=== PATIENT | female | born 1940 | race Caucasian/White ===

== ENCOUNTER → 2017-04-20 | Outpatient (CLI) | payer MEDICARE ==
--- NOTE | 2017-04-21 08:41 | MM ---
Reason for exam: screening (asymptomatic). Last mammogram was performed 7 years and 1 month ago. History: Patient is postmenopausal. Family history of breast cancer in mother at age 49. Benign cyst aspiration of the right breast, 1978. Physical Findings: A clinical breast exam by your physician is recommended on an annual basis and results should be correlated with mammographic findings. MG Screening Mammo w CAD Bilateral CC and MLO view(s) were taken. Prior study comparison: April 01, 2010, mammogram, performed at [facility]. The breast tissue is almost entirely fat. Finding: There are typically benign grouped/clustered calcifications in the lower quadrant of the right breast. There is a chronic nodularity in the left breast. There is no discrete abnormality. ASSESSMENT: Benign, BI-RAD 2 RECOMMENDATION: Routine screening mammogram of both breasts in 1 year.
== END | disposition home or self-care (01) ==
LOC: RADMAMWWP 10:46
PROVIDERS: ATTEND Family Medicine
DX: Z12.31 Encounter for screening mammogram for malignant neoplasm of breast (principal)

== ENCOUNTER → 2018-02-10 | Outpatient (CLI) | payer MEDICARE ==
--- NOTE | 2018-02-11 12:17 | US ---
EXAMINATION TYPE: US kidneys/renal and bladder DATE OF EXAM: 02/10/2018 COMPARISON: US 09/22/2015 CLINICAL HISTORY: R93.4 HX OF HYDRONEPHROSIS; prolapsed bladder per patient EXAM MEASUREMENTS: Right Kidney: 10.2 x 5.5 x 4.9 cm Left Kidney: 10.6 x 4.6 x 4.8 cm Post Void Residual Volume: bladder emptied Right Kidney: mild hydronephrosis, the pelvocaliectasis is similar to prior exam Left Kidney: Prominence of the renal pelvis shows a similar appearance and may be due to extrarenal p leisa. Bladder: wnl, but may not be fully distended Bilateral Jets seen: only faint left jet was seen Normal Post Void Residual: yes Cortical medullary differentiation is maintained. No evident renal stone or mass. IMPRESSION: No significant interval changes compared to prior exam. Additional findings above.
== END ==
LOC: RADUSWWP 15:29
PROVIDERS: ATTEND Urology
DX: N13.30 Unspecified hydronephrosis (principal)
CPT/HCPCS: 76770

== ENCOUNTER → 2018-05-12 | Outpatient (CLI) | payer MEDICARE ==
[2018-05-12 15:54] LABS: HCT 47.7 % (34.0-46.0); HGB 15.9 gm/dL (11.4-16.0); MCHC 33.3 g/dL (31.0-37.0); MCV 93.1 fL (80.0-100.0); Mean Platelet Volume 7.2; Platelet Count 265 k/uL (150-450); RBC 5.13 m/uL (3.80-5.40); RDW 12.7 % (11.5-15.5); WBC 7.1 k/uL (3.8-10.6)
[2018-05-12 16:02] LABS: Calcium 9.6 mg/dL (8.4-10.2); Potassium 4.1 mmol/L (3.5-5.1)
== END | disposition home or self-care (01) ==
LOC: LABWHC1 15:32
PROVIDERS: ATTEND Obstetrics & Gynecology
DX: Z01.812 Encounter for preprocedural laboratory examination (principal)
CPT/HCPCS: 36415; 80048; 85027; 86850; 86900; 86901

== ENCOUNTER → 2019-07-27 | Outpatient (CLI) | payer MEDICARE | LOC: LABPAT 12:56 | PROVIDERS: ATTEND Orthopaedic Surgery | DX: Z01.812 Encounter for preprocedural laboratory examination (principal); M16.12 Unilateral primary osteoarthritis, left hip | CPT/HCPCS: 87070 ==

== ENCOUNTER 2019-08-06 05:49 | Inpatient (IN) | payer MEDICARE ==
--- NOTE | 2019-08-05 21:00 | HP ---
HISTORY AND PHYSICAL REASON FOR ADMISSION: Surgery 08/06/2019 Stephanie Arnold is a 79-year-old patient seen with symptomatic left hip osteoarthritis. We discussed options with her. She elected to proceed with left total hip arthroplasty. Consent was obtained. Medical clearance was provided by Dr. Lawrence Huber. PAST MEDICAL HISTORY: Hypertension. PAST SURGICAL HISTORY: Appendectomy, cholecystectomy, hysterectomy, right total hip arthroplasty. DAILY MEDICATIONS: Felodipine, Prilosec, Zyrtec. ALLERGIES: SULFA. SOCIAL HISTORY: She denies tobacco use. PHYSICAL EXAMINATION: Evaluation of the left hip: There is diffuse tenderness. Limited range of motion with severe pain. Positive hip impingement sign. Straight leg raise is negative. Her distal neurovascular exam is intact. RADIOGRAPHS: Radiographs of the left hip revealed moderate to severe osteoarthritic changes. IMPRESSION: 1. Left hip osteoarthritis. 2. Hypertension. PLAN: Direct anterior left total hip arthroplasty. Surgery scheduled for 08/06/2019. MMODL / IJN: [id number] /
[~2019-08-06 05:49] MED LIST: ACETAMINOPHEN TAB 500 MG TAB PO ONE; MELOXICAM 7.5 MG TAB PO ONE; TRANEXAMIC ACID 1,000 MG in SODIUM CHLORIDE 0.9% 100 ML IVPB ONE
[2019-08-06] MEDS ORDERED: ROPIVACAINE 246.25 MG, EPINEPHrine 0.5 MG, KETOROLAC 30 MG, cloNIDine HCL/PF 80 MCG, WA... MISCELLANE ONE ×5 (06:00)
[2019-08-06] MEDS ORDERED: DEXAMETHASONE SOD PHOSPHATE 10 MG/ML 1 ML VIAL IV ONE (06:13)
[2019-08-06] MEDS ORDERED: LIDOCAINE 1% 20 ML VIAL (10MG/ML) FOR IV START INTRADERMA PRN (06:13)
[2019-08-06] MEDS ORDERED: ONDANSETRON 4 MG/2 ML VIAL IVP PRN (06:13)
[2019-08-06] MEDS: LACTATED RINGERS 1,000 ML IV SCH ×2 (06:34→15:37)
[2019-08-06] MEDS ORDERED: fentaNYL (PF) 50 MCG/ML 2 ML AMP ONE (07:24)
[2019-08-06] MEDS ORDERED: MIDAZOLAM 2 MG/2 ML VIAL ONE (07:24)
[2019-08-06] MEDS ORDERED: TRANEXAMIC ACID 1,000 MG/10 ML VIAL ONE (07:24)
[2019-08-06] MEDS ORDERED: PROPOFOL 10 MG/ML 20 ML VIAL IV ONE (07:24)
[2019-08-06] MEDS ORDERED: SODIUM CHLORIDE 0.9% 100 ML BAG ONE (07:24)
[2019-08-06] MEDS ORDERED: HYDROmorphone 0.5 MG/0.5 ML SYRINGE IVP PRN ×3 (09:11)
[2019-08-06] MEDS ORDERED: NALOXONE 0.4 MG/ML 1 ML VIAL IV PRN (09:11)
[2019-08-06] MEDS ORDERED: HYDROcodone/APAP 5-325MG 1 EACH TAB PO PRN (09:11)
--- NOTE | 2019-08-06 09:11 | P.OP ---
Date of Procedure: 08/06/19 Preoperative Diagnosis: Left hip osteoarthritis Postoperative Diagnosis: Left hip osteoarthritis Procedure(s) Performed: Direct anterior left total hip arthroplasty Implants: 1. Depuy Corail KA standard collar size 12 press-fit femoral stem 2. Depuy pinnacle 54 mm multi hole press-fit acetabular shell 3. Depuy pinnacle neutral polyethylene acetabular liner 36 mm ID 54 mm OD 4. Biolox delta ceramic femoral head +1.5 36 mm Anesthesia: local, spinal Surgeon: Jose Be Technical Sourcing Recruiter #1: Umberto Gomez Estimated Blood Loss (ml): 100 Pathology: none sent (Femoral head) Condition: stable Disposition: PACU Indications for Procedure: 79-year-old patient seen with symptomatic left hip osteoarthritis. After treatment options were discussed, she elected to proceed with total hip arthroplasty. Operative Findings: See description of procedure Description of Procedure: The patient was taken to the operative suite. Patient underwent a spinal anesthetic by the department of anesthesia. Patient was then transferred to the [place] table. Patient was given preoperative IV antibiotics and TXA. Both lower extremities were placed in standard leg spars. The hip was then prepped and draped in the normal sterile orthopedic fashion. A standard anterior incision was made beginning 3 cm lateral and 1 cm distal to the ASIS extending 10 cm. Dissection was then carried down through the subcutaneous soft tissues down to the fascia overlying the tensor fascia lonny. An incision was now made through the fascia. Careful dissection was taken down exposing the tensor fascia lonny muscle. A Cobra retractor was now placed along the medial femoral neck and a second one along the lateral femoral neck. The venous circumflex vessels were now identified, cauterized and clipped. We identified the anterior hip capsule. An incision was made through the hip capsule along the lateral border. I performed a partial anterior capsulectomy. Retractors were now placed around the femoral neck itself. A femoral neck cut was now made with a sagittal saw. It was completed with an osteotome at the lateral neck area. The femoral head was now removed without difficulty. The extremity was now rotated to 45 of external rotation. It was locked in position. Residual labrum was now debrided out. Serial reaming was performed of the acetabulum while Ishan PATIÑO assisted holding an anterior retractor for exposure. Once we reached the appropriate size and a trial was position and fit nicely. The appropriate size was now chosen opened and made available. It was introduced into the acetabulum without difficulty. The C-arm/fluoroscopy was now brought into the operative field. We made sure we had a true AP pelvic view. We now under direct C- arm/fluoroscopy introduced into the acetabular component with appropriate version and inclination. I held the cup in appropriate position well Ishan PATIÑO used a mallet to seat the acetabular component. I noted the component now to be well seated and stable. Acetabular cup introduce her was removed. The C-arm was pulled back. An appropriate liner was introduced and clicked into position. It was felt to be stable. At this point retractors were removed. The extremity was now placed into 120 external rotation with no traction. The leg was now dropped to the ground and adducted. Appropriate retractors were now positioned along the proximal femur. We also placed our femoral look into position. Additional capsular releasing was performed to gain access to the proximal femur. We now used a box osteotome. A canal finder was now utilized. Serial broaching was now performed with the assistance of Ishan PATIÑO tapping the broaches down with a mallet while held the broach in appropriate rotation and position. This was done until we reached the appropriate size with good overall rotational stability. Appropriate calcar planing was performed. A trial head/neck was placed into position. The hip was now reduced. The C- arm/fluoroscopy was brought back into the operative field. An AP pelvis was obtained to ascertain appropriate leg length. It appeared we had appropriate/reasonable leg length. The trial components appeared well positioned. The C-arm/fluoroscopy was pulled back. Retractors were repositioned and the hip was dislocated. The leg was again taken down to the ground and adducted. Appropriate retractors were repositioned as well as the femoral hook. All trial components were removed. The femoral implant was opened along with the femoral head. The femoral implant was introduced on the appropriate handle into our pre-broached area. I held the component position well Ishan PATIÑO used a mallet to seat the femoral component. The femoral component was now noted to be well seated and stable.. The femoral head was introduced with good positioning and fixation noted. Retractors were now removed. The hip was now reduced. There appeared be good positioning of the hip confirmed on intraoperative fluoroscopy. Spot films were obtained to document this. A second gram of TXA was given. The deep and superficial soft tissues were infiltrated with local analgesic. Bipolar cautery had been utilized intermittently through the procedure for hemostasis. The wound was irrigated copiously with pulse lavage mechanical irrigation. The fascia was repaired with Vicryl suture. The subcutaneous soft tissues were repaired in layers with Vicryl suture. The skin was approximated with pernio/Dermabond. Sterile dressings were applied. Patient was then awakened, transferred to a bed and taken to recovery in stable condition. Ishan PATIÑO assisted with the complex procedure.
[2019-08-06] MEDS: HYDROmorphone 0.5 MG/0.5 ML SYRINGE IVP PRN ×2 (09:12→09:25)
[2019-08-06] MEDS ORDERED: LACTATED RINGERS 1,000 ML IV ONE (09:22)
[2019-08-06] MEDS ORDERED: ONDANSETRON 4 MG/2 ML VIAL IVP ONE (09:22)
--- NOTE | 2019-08-06 09:48 | XR ---
EXAMINATION TYPE: XR Hip Limited LT, FL guidance operating room DATE OF EXAM: 08/06/2019 CLINICAL HISTORY: Fluoroscopic documentation during left hip arthroplasty. TECHNIQUE: Fluoroscopy. COMPARISON: None. FINDINGS: Fluoroscopic guidance was provided during procedure performed by Dr. Be. A total of 15 seconds of fluoroscopic time was utilized during the procedure and 1 spot images was acquired dem onstrating left hip arthroplasty. IMPRESSION: As Above.
[2019-08-06] MEDS ORDERED: SODIUM CHLORIDE 0.9% 500 ML 500 ML IV ONE (10:24)
[2019-08-06] MEDS: LORATADINE 10 MG TAB PO SCH (10:53)
[2019-08-06] MEDS: amLODIPine 10 MG TAB PO SCH (10:53)
[2019-08-06] MEDS: SODIUM CHLORIDE 0.9% 1,000 ML IV SCH (10:54)
--- NOTE | 2019-08-06 12:16 | P.CONS ---
History of Present Illness - Reason for Consult Consult date: 08/06/19 Medical management - History of Present Illness This is a 79-year-old female patient of Dr. Galdino Huber with past medical history of hypertension, gastroesophageal reflux disease, seasonal ALLERGIES, migraine headaches, chronic back pain secondary to degenerative disc disease. Patient has been brought in the hospital on the care of Dr. Be status post anterior approach left hip arthroplasty. Patient is seen in the immediate postop period. She is feeling somewhat nauseated. Blood pressure is on the low side and bolus will be ordered. Family relates that it takes her a while to come out of anesthesia completely. Otherwise, patient is afebrile, heart rate in the 60s, pulse ox 97% on 2 L nasal cannula. Review of Systems Constitutional: Denies anorexia, Denies chills, Denies chronic headaches, Denies fatigue, Denies fever, Denies lethargy, Denies malaise, Denies poor appetite Eyes: denies blurred vision, denies pain Ears, nose, mouth and throat: Denies dysphagia, Denies headache, Denies nasal congestion, Denies nasal discharge, Denies sore throat, Denies vertigo Cardiovascular: Denies chest pain, Denies dyspnea on exertion, Denies edema, Denies leg edema, Denies lightheadedness, Denies shortness of breath, Denies syncope Respiratory: Denies cough, Denies cough with sputum, Denies dyspnea, Denies excessive sputum, Denies hemoptysis, Denies home oxygen, Denies respiratory infections, Denies sleep apnea Gastrointestinal: Reports nausea, Denies abdominal pain, Denies diarrhea, Denies vomiting Genitourinary: Denies dysuria, Denies hematuria, Denies urgency, Denies urinary frequency Musculoskeletal: Denies frequent falls, Denies gait dysfunction, Denies muscle weakness, Denies myalgias Integumentary: Reports wounds, Denies pruritus, Denies rash Neurological: Denies change in mentation, Denies change in speech, Denies numbness, Denies weakness Psychiatric: Denies anxiety, Denies depression Endocrine: Denies fatigue, Denies weight change Past Medical History Past Medical History: GERD/Reflux, Hypertension, Pneumonia Additional Past Medical History / Comment(s): hx migraines, arthritis, 3 bulging disks.. SEASONAL ALLERGIES History of Any Multi-Drug Resistant Organisms: None Reported Past Surgical History: Appendectomy, Breast Surgery, Cholecystectomy, Hernia Repair, Hysterectomy, Joint Replacement, Orthopedic Surgery Additional Past Surgical History / Comment(s): CATARACT REMOVAL OF RIGHT EYE.Ovarian cyst removed. Rt hip replacement. Carpal tunnel-rt. Cyst removed rt breast, left hip anterior approach arthroplasty Past Anesthesia/Blood Transfusion Reactions: Motion Sickness Past Psychological History: No Psychological Hx Reported Smoking Status: Never smoker Past Alcohol Use History: None Reported Additional Past Alcohol Use History / Comment(s): Patient is a lifelong nonsmoker, no marijuana or illicit drug use, no alcohol use. Past Drug Use History: None Reported - Past Family History Father Family Medical History: Cancer Additional Family Medical History / Comment(s): Father at age 80 from prostate cancer. Mother Family Medical History: Cancer Additional Family Medical History / Comment(s): Mother at age 50 from breast cancer. Sister(s) History Unknown: Yes Additional Family Medical History / Comment(s): Patient has one sister the patient has no contact with her. No brothers. Patient has one son with osteoarthritis and hip replacement, 1 daughter with no major medical problems. Medications and Allergies Home Medications Medication Instructions Recorded Confirmed Type Cetirizine HCl [Zyrtec] 10 mg PO QAM 07/08/15 08/02/19 History Cholecalciferol [Vitamin D3] 1,000 unit PO DAILY 07/08/15 08/02/19 History Felodipine [Felodipine ER] 10 mg PO QAM 07/08/15 08/06/19 History Omeprazole [PriLOSEC] 20 mg PO AC-BRKFST 07/08/15 08/06/19 History Acetaminophen [Tylenol] 500 mg PO Q6H PRN 08/02/19 08/06/19 History Allergies Allergy/AdvReac Type Severity Reaction Status Date / Time Sulfa (Sulfonamide Allergy Unknown Verified 08/06/19 06:20 Antibiotics) adhesive tape AdvReac Rash/Hives Verified 08/06/19 06:20 Physical Exam Vitals: Vital Signs Temp Pulse Resp BP Pulse Ox 08/06/19 09:45 57 L 15 116/56 97 08/06/19 09:30 61 16 106/54 97 08/06/19 09:15 68 15 114/55 94 L 08/06/19 09:10 98.6 F 87 16 116/56 94 L 08/06/19 06:18 98 F 73 16 129/71 97 Intake and Output 08/05/19 08/06/19 08/06/19 22:59 06:59 14:59 Intake Total 400 650 Output Total 100 Balance 400 550 Intake: IV 400 650 Output: Estimated Blood Loss 100 Gen: This is a 79-year-old female. Patient is resting in bed appears to be somewhat comfortable with minimal nausea. HEENT: Head is atraumatic, normocephalic. Pupils equal, round. Sclerae is anicteric. Oral mucous membranes of his slightly dry. NECK: Supple. No JVD. No lymphadenopathy. No thyromegaly. LUNGS: Clear to auscultation. No wheezes or rhonchi. No intercostal retractions. HEART: Regular rate and rhythm. No murmur. ABDOMEN: Soft. Bowel sounds are present. No masses. No tenderness. EXTREMITIES: No pedal edema. No calf tenderness. Small dressing in place to the left hip with no breakthrough bleeding or drainage. NEUROLOGICAL: Patient is awake, alert and oriented x3. Cranial nerves 2 through 12 are grossly intact. Assessment and Plan Plan: 1. Osteoarthritis status post left hip anterior approach arthroplasty. Continue current pain management, continue incentive spirometry to reduce incidence of atelectasis and hospital-acquired pneumonia, PT and OT per orthopedics. 2. Hypertension. Continue felodipine 10 mg every a.m. to start tomorrow with parameters in place to hold for hypotension. 3. Gastroesophageal reflux disease and GI prophylaxis. Continue omeprazole or equivalent. 4. Seasonal ALLERGIES. Continue Zyrtec as needed. 5. History of migraine headaches, stable. 6. Degenerative disc disease, stable. 7. DVT prophylaxis. Lovenox. Discharge plan: To be determined Impression and plan of care have been directed as dictated by the signing physician. Kathi Monahan nurse practitioner acting as scribe for signing physician.
[2019-08-06] MEDS: SENNOSIDES-DOCUSATE SODIUM 1 EACH TAB PO SCH (21:02)
[2019-08-06] MEDS: HYDROcodone/APAP 5-325MG 1 EACH TAB PO PRN (21:02)
[2019-08-06] MEDS: ENOXAPARIN 40 MG/0.4 ML SYRINGE SQ SCH (21:03)
[2019-08-06] MEDS: ONDANSETRON 4 MG/2 ML VIAL IVP PRN (21:03)
[2019-08-07] MEDS: HYDROcodone/APAP 5-325MG 1 EACH TAB PO PRN (03:17)
[2019-08-07] MEDS: SODIUM CHLORIDE 0.9% 1,000 ML IV SCH (05:10)
[2019-08-07 06:59] LABS: Basophils % (A) 0 %; Eosinophils % (A) 0 %; HCT 35.3 % (34.0-46.0); HGB 11.6 gm/dL (11.4-16.0); Lymphocytes % (A) 11 %; MCH 31.8 pg (25.0-35.0); MCHC 32.9 g/dL (31.0-37.0); MCV 96.6 fL (80.0-100.0); Mean Platelet Volume 6.4; Monocytes # (A) 0.6 k/uL (0-1.0); Monocytes % (A) 6 %; Neutrophils # (A) 7.9 k/uL (1.3-7.7); Neutrophils % (A) 81 %; Platelet Count 164 k/uL (150-450); RBC 3.65 m/uL (3.80-5.40); RDW 12.8 % (11.5-15.5); WBC 9.7 k/uL (3.8-10.6)
[2019-08-07] MEDS: amLODIPine 10 MG TAB PO SCH (07:39)
[2019-08-07] MEDS: FAMOTIDINE 20 MG TAB PO SCH (07:43)
[2019-08-07] MEDS: LORATADINE 10 MG TAB PO SCH (07:43)
[2019-08-07] MEDS: MELOXICAM 7.5 MG TAB PO SCH (07:43)
[2019-08-07] MEDS: ONDANSETRON 4 MG/2 ML VIAL IVP PRN (09:39)
--- NOTE | 2019-08-07 11:21 | P.PN ---
Subjective Progress Note Date: 08/07/19 Principal diagnosis: Status post left total hip arthroplasty Patient evaluated today at bedside, she is family present. She notes dizziness and nausea when ambulating. She also notes discomfort in the left hip region. She denies any chest pain or shortness of breath. Objective - Vital Signs Vital signs: Vital Signs Temp 98.1 F 08/07/19 07:00 Pulse 79 08/07/19 07:00 Resp 12 08/07/19 07:00 BP 117/72 08/07/19 07:00 Pulse Ox 94 L 08/07/19 07:00 Intake & Output 08/06/19 08/07/19 08/07/19 18:59 06:59 18:59 Intake Total 650 20 Output Total 100 100 Balance 550 -80 Intake: IV 650 Oral 20 Output: Urine 100 Estimated Blood Loss 100 Other: Voiding Method Bedside Commode # Voids 1 1 1 - Exam Left lower extremity: Incision is clean, dry, and intact. The jean paul is in good condition. There is minimal soft tissue swelling and ecchymosis surrounding the medial and lateral aspects of the incision. Calf is soft, no tenderness with palpation. Plantar flexion, dorsiflexion, EHL, FHL are intact. Sensory exam to light touch throughout the extremity is intact, dorsal pedis pulses 2+. - Labs CBC & Chem 7: 08/07/19 06:21 Labs: Abnormal Lab Results - Last 24 Hours (Table) 08/07/19 Range/Units 06:21 RBC 3.65 L (3.80-5.40) m/uL Neutrophils # 7.9 H (1.3-7.7) k/uL Assessment and Plan Plan: Assessment: Postoperative day #1 status post left total hip arthroplasty Plan: Pain control, advised patient on narcotics may be causing nausea. Advised low- dose medication and to make sure she eats before taking medication GI and DVT prophylaxis, continue current medication Dressing change was discussed Encourage spirometer Continue PT Medical recommendations Hopeful dc to home tomorrow Time with Patient: Less than 30
[2019-08-07] MEDS ORDERED: ONDANSETRON 4 MG/2 ML VIAL IVP PRN (11:38)
[2019-08-07] MEDS ORDERED: METOCLOPRAMIDE 5 MG/ML 2 ML VIAL IVP PRN (11:45)
--- NOTE | 2019-08-07 12:47 | P.PN ---
Subjective Progress Note Date: 08/07/19 This is a 79-year-old female patient of Dr. Galdino Huber with past medical history of hypertension, gastroesophageal reflux disease, seasonal ALLERGIES, migraine headaches, chronic back pain secondary to degenerative disc disease. Patient has been brought in the hospital on the care of Dr. Be status post anterior approach left hip arthroplasty. Patient is seen in the immediate postop period. She is feeling somewhat nauseated. Blood pressure is on the low side and bolus will be ordered. Family relates that it takes her a while to come out of anesthesia completely. Otherwise, patient is afebrile, heart rate in the 60s, pulse ox 97% on 2 L nasal cannula. 08/07: The patient complains of feeling dizzy and continues to have nausea. She did receive Zofran and Reglan has been added. She did eat some breakfast this morning. No bowel movement. She is passing gas. She denies any chest pain or shortness of breath. She does complain of hip pain that is a #5-6 and increased pain with movement. She has been afebrile, heart rate 79, blood pressure 117/72, pulse ox 94% on room air. Repeat lab work reveals white count of 9.7, hemoglobin 11.6, platelet count 164. Patient's discharge plan is to return home with [facility]. Review of Systems Constitutional: Denies anorexia, Denies chills, Denies chronic headaches, Denies fatigue, Denies fever, Denies lethargy, Denies malaise, Denies poor appetite, reports dizziness Eyes: denies blurred vision, denies pain Ears, nose, mouth and throat: Denies dysphagia, Denies headache, Denies nasal congestion, Denies nasal discharge, Denies sore throat, Denies vertigo Cardiovascular: Denies chest pain, Denies dyspnea on exertion, Denies edema, Denies leg edema, Denies lightheadedness, Denies shortness of breath, Denies syncope Respiratory: Denies cough, Denies cough with sputum, Denies dyspnea, Denies excessive sputum, Denies hemoptysis, Denies home oxygen, Denies respiratory i nfections, Denies sleep apnea Gastrointestinal: Reports nausea, Denies abdominal pain, Denies diarrhea, Denies vomiting Genitourinary: Denies dysuria, Denies hematuria, Denies urgency, Denies urinary frequency Musculoskeletal: Denies frequent falls, Denies gait dysfunction, Denies muscle weakness, Denies myalgias Integumentary: Reports wounds, Denies pruritus, Denies rash Neurological: Denies change in mentation, Denies change in speech, Denies numbness, Denies weakness Psychiatric: Denies anxiety, Denies depression Endocrine: Denies fatigue, Denies weight change Objective - Vital Signs Vital signs: Vital Signs Temp 98.1 F 08/07/19 07:00 Pulse 79 08/07/19 07:00 Resp 12 08/07/19 07:00 BP 117/72 08/07/19 07:00 Pulse Ox 94 L 08/07/19 07:00 Intake & Output 08/06/19 08/07/19 08/07/19 18:59 06:59 18:59 Intake Total 650 20 Output Total 100 100 Balance 550 -80 Intake: IV 650 Oral 20 Output: Urine 100 Estimated Blood Loss 100 Other: Voiding Method Bedside Commode # Voids 1 1 - Exam Gen: This is a 79-year-old female. Patient is resting in bed appears to be somewhat comfortable due to nausea. HEENT: Head is atraumatic, normocephalic. Pupils equal, round. Sclerae is anicteric. Oral mucous membranes of his slightly dry. NECK: Supple. No JVD. No lymphadenopathy. No thyromegaly. LUNGS: Clear to auscultation. No wheezes or rhonchi. No intercostal retractions. HEART: Regular rate and rhythm. No murmur. ABDOMEN: Soft. Bowel sounds are present. No masses. No tenderness. EXTREMITIES: No pedal edema. No calf tenderness. Small dressing in place to the left hip with no breakthrough bleeding or drainage. NEUROLOGICAL: Patient is awake, alert and oriented x3. Cranial nerves 2 through 12 are grossly intact. - Labs CBC & Chem 7: 08/07/19 06:21 Labs: Abnormal Lab Results - Last 24 Hours (Table) 08/07/19 Range/Units 06:21 RBC 3.65 L (3.80-5.40) m/uL Neutrophils # 7.9 H (1.3-7.7) k/uL Assessment and Plan Plan: 1. Osteoarthritis status post left hip anterior approach arthroplasty. Continue current pain management, continue incentive spirometry to reduce incidence of atelectasis and hospital-acquired pneumonia, PT and OT per orthopedics. 2. Hypertension. Continue felodipine 10 mg every a.m. to start tomorrow with parameters in place to hold for hypotension. 3. Gastroesophageal reflux disease and GI prophylaxis. Continue omeprazole or equivalent. 4. Seasonal ALLERGIES. Continue Zyrtec as needed. 5. History of migraine headaches, stable. 6. Degenerative disc disease, stable. 7. DVT prophylaxis. Lovenox. 8. Postop nausea. Continue Zofran and Reglan added. Discharge plan: Home with [facility]. Impression and plan of care have been directed as dictated by the signing physician. Kathi Monahan nurse practitioner acting as scribe for signing physician.
[2019-08-07] MEDS: SENNOSIDES-DOCUSATE SODIUM 1 EACH TAB PO SCH (21:30)
[2019-08-07] MEDS: ENOXAPARIN 40 MG/0.4 ML SYRINGE SQ SCH (21:30)
[2019-08-08] MEDS: SODIUM CHLORIDE 0.9% 1,000 ML IV SCH (02:20)
[2019-08-08] MEDS: HYDROcodone/APAP 5-325MG 1 EACH TAB PO PRN ×2 (02:27→11:25)
[2019-08-08] MEDS: LACTATED RINGERS 1,000 ML IV SCH (03:55)
[2019-08-08 09:11] VITALS: RESP 16
[2019-08-08] MEDS: amLODIPine 10 MG TAB PO SCH (11:19)
[2019-08-08] MEDS: LORATADINE 10 MG TAB PO SCH (11:20)
[2019-08-08] MEDS: FAMOTIDINE 20 MG TAB PO SCH (11:20)
[2019-08-08] MEDS: MELOXICAM 7.5 MG TAB PO SCH (11:21)
--- NOTE | 2019-08-08 11:37 | P.PN ---
Subjective Progress Note Date: 08/08/19 Principal diagnosis: Status post left total hip arthroplasty Patient evaluated today at bedside, she is family present. Dizziness and nausea has improved. No chest pain or shortness of breath. Patient would like to be discharged to rehab. Objective - Vital Signs Vital signs: Vital Signs Temp 98.5 F 08/08/19 07:49 Pulse 87 08/08/19 07:49 Resp 16 08/08/19 07:49 BP 127/77 08/08/19 07:49 Pulse Ox 95 08/08/19 07:49 Intake & Output 08/07/19 08/08/19 08/08/19 18:59 06:59 18:59 Intake Total 240 Balance 240 Intake: Oral 240 Other: # Voids 1 1 - Exam Left lower extremity: Incision is clean, dry, and intact. The jean paul is in good condition. There is minimal soft tissue swelling and ecchymosis surrounding the medial and lateral aspects of the incision. Calf is soft, no tenderness with palpation. Plantar flexion, dorsiflexion, EHL, FHL are intact. Sensory exam to light touch throughout the extremity is intact, dorsal pedis pulses 2+. - Labs CBC & Chem 7: 08/07/19 06:21 Assessment and Plan Plan: Assessment: Postoperative day #2 status post left total hip arthroplasty Plan: Pain control, plan for discharge on [place] 5 mg/325 mg GI and DVT prophylaxis, aspirin 81 mg twice a day Dressing change was discussed Encourage spirometer Continue PT Medical recommendations Dc to rehab today Time with Patient: Less than 30
--- NOTE | 2019-08-08 14:48 | P.PN ---
Subjective Progress Note Date: 08/08/19 This is a 79-year-old female patient of Dr. Galdino Huber with past medical history of hypertension, gastroesophageal reflux disease, seasonal ALLERGIES, migraine headaches, chronic back pain secondary to degenerative disc disease. Patient has been brought in the hospital on the care of Dr. Be status post anterior approach left hip arthroplasty. Patient is seen in the immediate postop period. She is feeling somewhat nauseated. Blood pressure is on the low side and bolus will be ordered. Family relates that it takes her a while to come out of anesthesia completely. Otherwise, patient is afebrile, heart rate in the 60s, pulse ox 97% on 2 L nasal cannula. 08/07: The patient complains of feeling dizzy and continues to have nausea. She did receive Zofran and Reglan has been added. She did eat some breakfast this morning. No bowel movement. She is passing gas. She denies any chest pain or shortness of breath. She does complain of hip pain that is a #5-6 and increased pain with movement. She has been afebrile, heart rate 79, blood pressure 117/72, pulse ox 94% on room air. Repeat lab work reveals white count of 9.7, hemoglobin 11.6, platelet count 164. Patient's discharge plan is to return home with [facility]. 08/08: Patient has been afebrile, heart rate 87, blood pressure 127/77, pulse ox 95% on room air. Patient states that nausea is completely gone. She denies having any shortness of breath. She ate half of her breakfast this morning. She states that her is currently a patient at [facility] and social work is following for discharge planning to [facility] for her as well. Review of Systems Constitutional: Denies anorexia, Denies chills, Denies chronic headaches, Denies fatigue, Denies fever, Denies lethargy, Denies malaise, Denies poor appetite, reports dizziness Eyes: denies blurred vision, denies pain Ears, nose, mouth and throat: Denies dysphagia, Denies headache, Denies nasal congestion, Denies nasal discharge, Denies sore throat, Denies vertigo Cardiovascular: Denies chest pain, Denies dyspnea on exertion, Denies edema, Denies leg edema, Denies lightheadedness, Denies shortness of breath, Denies syncope Respiratory: Denies cough, Denies cough with sputum, Denies dyspnea, Denies excessive sputum, Denies hemoptysis, Denies home oxygen, Denies respiratory infections, Denies sleep apnea Gastrointestinal: Denies nausea, Denies abdominal pain, Denies diarrhea, Denies vomiting Genitourinary: Denies dysuria, Denies hematuria, Denies urgency, Denies urinary frequency Musculoskeletal: Denies frequent falls, Denies gait dysfunction, Denies muscle weakness, Denies myalgias Integumentary: Reports wounds, Denies pruritus, Denies rash Neurological: Denies change in mentation, Denies change in speech, Denies numbness, Denies weakness Psychiatric: Denies anxiety, Denies depression Endocrine: Denies fatigue, Denies weight change Objective - Vital Signs Vital signs: Vital Signs Temp 98.5 F 08/08/19 07:49 Pulse 87 08/08/19 07:49 Resp 16 08/08/19 07:49 BP 127/77 08/08/19 07:49 Pulse Ox 95 08/08/19 07:49 Intake & Output 08/07/19 08/08/19 08/08/19 18:59 06:59 18:59 Intake Total 240 Balance 240 Intake: Oral 240 Other: # Voids 1 1 - Exam Gen: This is a 79-year-old female. Patient is resting in chair appears to be comfortable and in no acute distress. HEENT: Head is atraumatic, normocephalic. Pupils equal, round. Sclerae is anicteric. Oral mucous membranes of his slightly dry. NECK: Supple. No JVD. No lymphadenopathy. No thyromegaly. LUNGS: Clear to auscultation. No wheezes or rhonchi. No intercostal retractions. HEART: Regular rate and rhythm. No murmur. ABDOMEN: Soft. Bowel sounds are present. No masses. No tenderness. EXTREMITIES: No pedal edema. No calf tenderness. Small dressing in place to the left hip with no breakthrough bleeding or drainage. NEUROLOGICAL: Patient is awake, alert and oriented x3. Cranial nerves 2 through 12 are grossly intact. - Labs CBC & Chem 7: 08/07/19 06:21 Assessment and Plan Plan: 1. Osteoarthritis status post left hip anterior approach arthroplasty. Continue current pain management, continue incentive spirometry to reduce incidence of atelectasis and hospital-acquired pneumonia, PT and OT per orthopedics. 2. Hypertension. Continue felodipine 10 mg every a.m. hold for hypotension. 3. Gastroesophageal reflux disease and GI prophylaxis. Continue omeprazole or equivalent. 4. Seasonal ALLERGIES. Continue Zyrtec as needed. 5. History of migraine headaches, stable. 6. Degenerative disc disease, stable. 7. DVT prophylaxis. Lovenox. 8. Postop nausea, resolved. Continue Zofran and Reglan added. Discharge plan: [facility] under the care of Dr. Lugo most likely on . Impression and plan of care have been directed as dictated by the signing physician. Kathi Monahan nurse practitioner acting as scribe for signing physician.
--- NOTE | 2019-08-08 15:29 | P.DS ---
Providers Date of admission: 08/06/19 05:49 Expected date of discharge: 08/08/19 Attending physician: Jose Be Primary care physician: Galdino Huebr Hospital Course: Date of admission: 08/06/2019 Date of discharge: 08/08/2019 Admission diagnosis: Status post direct anterior left total hip arthroplasty Discharge diagnosis: Same Attending physician: Dr. Be Surgical procedures: Direct anterior left total hip arthroplasty Brief history: Patient is a 79-year-old female with a history of progressive primary left hip osteoarthritis. At this point patient has failed conservative treatment measures and has opted to proceed with a elective direct anterior left total hip arthroplasty. Hospital course: Details of patient's surgery can be found in operative report. Patient tolerated the procedure well and was subsequently transported to orthopedic floor. Patient's orthopeidc and medical care was provided daily. Patient had daily laboratory tests performed for evaluation of overall blood counts. Patient had daily physical therapy to include strengthening range of motion as well as education with walker ambulation. Patient was treated with Lovenox for their postoperative DVT prophylaxis during their inpatient stay. Patient was noted to have a relatively uneventful postoperative course. Patient reported satisfactory pain control with oral pain medications by postoperative day 0. Patient showed satisfactory progress with physical therapy. Patient moved steadily through the program and had no difficulty meeting the goals by postoperative day 2. Given patient's otherwise satisfactory course and having met physical therapy goals, plan is to discharge patient rehab on postoperative day 2. Discharge condition/disposition: Patient will be discharged home in stable condition. Discharge medications: Instructions are given on resumption of patient's normal daily medications per primary care recommendation, in addition patient will be prescribed Sargent 5 mg/325 mg, Colace 100 mg, aspirin 81 mg. Discharge instructions: 1. Wound care and infection precautions, keep incision dry and covered while showering, no lotions, creams, moisturizers. No soaking, tubs, pools, hottubs. Do not scrub over the incision. 2. Weight-bear as tolerated with walker / cane until follow-up. 3. Ice and elevate when necessary. Do not exceed 20 minutes per hour with ice pack. 4. Utilize compression sleeve until seen at first follow up appointment. 5. Visiting nursing care. 6. Home physical therapy. 7. Pain meds and anticoagulants per prescription. 8. Pain medication has potential to cause constipation. Increase oral fluid and fiber intake. Contact primary care provider if you have not had a bowel movement within 48 hours after discharge 9. No anti-inflammatory medication until discussed at first post operative visit, this including Motrin, Aleve, Mobic, Diclofenac. 10. Follow up in office at 2 weeks postop with Ishan Gomez PA-C 11. Follow up with your primary care doctor 7-10 days after discharge. 12. Contact [facility] with any questions, . Procedures: Direct anterior left total hip arthroplasty Patient Condition at Discharge: Good Plan - Discharge Summary Discharge Rx Participant: No New Discharge Prescriptions: New Famotidine [Pepcid] 20 mg PO DAILY tab Aspirin [Adult Low Dose Aspirin EC] 81 mg PO BID #60 tablet. Docleonardte [Colace] 100 mg PO DAILY #30 capsule Hydrocodone/Acetaminophen [S[place]ent 5-325] 1 each PO Q6HR PRN #28 tab PRN Reason: Pain Continue Omeprazole [PriLOSEC] 20 mg PO AC-BRKFST Cholecalciferol [Vitamin D3 (25 Mcg = 1000 Iu)] 1,000 unit PO DAILY Felodipine [Felodipine ER] 10 mg PO QAM Cetirizine HCl [Zyrtec] 10 mg PO QAM Acetaminophen [Tylenol] 500 mg PO Q6H PRN PRN Reason: Pain Discharge Medication List Cetirizine HCl [Zyrtec] 10 mg PO QAM 07/08/15 [History] Cholecalciferol [Vitamin D3 (25 Mcg = 1000 Iu)] 1,000 unit PO DAILY 07/08/15 [History] Felodipine [Felodipine ER] 10 mg PO QAM 07/08/15 [History] Omeprazole [PriLOSEC] 20 mg PO AC-BRKFST 07/08/15 [History] Acetaminophen [Tylenol] 500 mg PO Q6H PRN 08/02/19 [History] Aspirin [Adult Low Dose Aspirin EC] 81 mg PO BID #60 tablet. 08/08/19 [Rx] Docusate [Colace] 100 mg PO DAILY #30 capsule 08/08/19 [Rx] Famotidine [Pepcid] 20 mg PO DAILY tab 08/08/19 [Rx] Hydrocodone/Acetaminophen [Sargent 5-325] 1 each PO Q6HR PRN #28 tab 08/08/19 [Rx] Follow up Appointment(s)/Referral(s): [facility], [NON-STAFF] - As Needed Umberto Gomez, PAC [PHYSICIAN METALLURGY TEACHER] - 08/22/19 2:00 pm Galdino Huber MD [Primary Care Provider] - 1 Week Activity/Diet/Wound Care/Special Instructions: Orthopedic Discharge Instructions: 1. Wound care and infection precautions, keep incision dry and covered while showering, no lotions, creams, moisturizers. No soaking, pools, hot tubs. Do not scrub over incision. 2. Weight-bear as tolerated with walker / cane until follow-up. 3. Ice and elevate when necessary. Do not exceed 20 minutes per hour with ice pack. 4. Utilize compression sleeve until seen at first follow up appointment. 5. Pain meds and anticoagulants per prescription. 6. Pain medication has potential to cause constipation. Increase oral fluid and fiber intake. Contact primary care provider if you have not had a bowel movement within 48 hours after discharge. 7. No anti-inflammatory medication until discussed at first post operative visit, this including Motrin, Aleve, Mobic, Diclofenac. 8. Follow up in office at 2 weeks postop with Ishan Gomez PA-C 9. Follow up with your primary care doctor 7-10 days after discharge. 10. Contact [facility] with any questions, . Discharge Disposition: TRANSFER TO SNF/ECF
[2019-08-08 16:41] VITALS: BP 120/72; PULSE 85; TEMP 98.7
== END 2019-08-08 16:29 | DRG 470 ==
LOC: 2ORMAIN 05:49 → 4SSUR 08:57
PROVIDERS: ADMIT Orthopaedic Surgery; ATTEND Orthopaedic Surgery
PROC: 0SRB04A Replacement of Left Hip Joint with Ceramic on Polyethylene Synthetic Substitute, Uncemented, Open Approach (ICD-10-PCS; principal; 2019-08-06 07:30)
DX: M16.12 Unilateral primary osteoarthritis, left hip (principal); I10 Essential (primary) hypertension; M51.26 Other intervertebral disc displacement, lumbar region; M15.9 Polyosteoarthritis, unspecified; E66.3 Overweight; K21.9 Gastro-esophageal reflux disease without esophagitis; R42 Dizziness and giddiness; R11.0 Nausea; G43.909 Migraine, unspecified, not intractable, without status migrainosus; J30.2 Other seasonal allergic rhinitis; M51.36 Other intervertebral disc degeneration, lumbar region; Z96.641 Presence of right artificial hip joint; Z90.49 Acquired absence of other specified parts of digestive tract; Z90.710 Acquired absence of both cervix and uterus; Z79.899 Other long term (current) drug therapy; Z88.2 Allergy status to sulfonamides; Z87.01 Personal history of pneumonia (recurrent); Z98.890 Other specified postprocedural states; Z98.41 Cataract extraction status, right eye; Z80.42 Family history of malignant neoplasm of prostate; Z80.3 Family history of malignant neoplasm of breast; Z82.61 Family history of arthritis; Z91.09 Other allergy status, other than to drugs and biological substances; Z82.49 Family history of ischemic heart disease and other diseases of the circulatory system; Z97.3 Presence of spectacles and contact lenses; Z68.32 Body mass index [BMI] 32.0-32.9, adult
CPT/HCPCS: 36415; 73501; 85025; 86850; 86900; 86901; 88300

== ENCOUNTER 2020-05-09 17:19 | Observation (INO) | payer MEDICARE ==
[2020-05-09] MEDS ORDERED: HYDROmorphone 1 MG/ML 1 ML SYRINGE IVP STA (17:40)
[2020-05-09] MEDS ORDERED: DIAZEPAM 5 MG/ML 2 ML INJ IVP STA (17:45)
[2020-05-09] MEDS ORDERED: ONDANSETRON 4 MG/2 ML VIAL IVP STA (17:51)
[2020-05-09] MEDS ORDERED: NALOXONE 0.4 MG/ML 1 ML VIAL IVP STA (18:14)
[2020-05-09] MEDS ORDERED: NALOXONE 0.4 MG/ML 10 ML VIAL IVP PRN (18:16)
[2020-05-09] MEDS ORDERED: NALOXONE 0.4 MG/ML 1 ML VIAL IVP PRN (18:18)
--- NOTE | 2020-05-09 18:19 | ED ---
Fall HPI <AimeWilliam - Last Filed: 05/09/20 20:40> - General Source: patient, EMS Mode of arrival: EMS <Roberto Panchal - Last Filed: 05/09/20 21:17> - General Chief Complaint: Fall Stated Complaint: Fall Time Seen by Provider: 05/09/20 17:34 - History of Present Illness Initial Comments: Patient is 79-year-old female presenting to the emergency department with a chief complaint of left ear pain. Patient reports she had bilateral hip arthroplasty last year by . Patient states today she was out working the garden when she attempted to lean to the left side and her "left hip gave out". Patient reports there is significant amount of pain in the left hip and she is not able to move it in any direction. Patient reports any movement causes the pain to be exacerbated. Denies any numbness or tingling. Patient brought to the ED via EMS. Patient was given fentanyl in the ambulance (Roberto Panchal) - Related Data Home Medications Medication Instructions Recorded Confirmed Cetirizine HCl [Zyrtec] 10 mg PO QAM 07/08/15 08/02/19 Cholecalciferol [Vitamin D3 (25 1,000 unit PO DAILY 07/08/15 08/02/19 Mcg = 1000 Iu)] Felodipine [Felodipine ER] 10 mg PO QAM 07/08/15 08/06/19 Omeprazole [PriLOSEC] 20 mg PO AC-BRKFST 07/08/15 08/06/19 Acetaminophen [Tylenol] 500 mg PO Q6H PRN 08/02/19 08/06/19 Previous Rx's Medication Instructions Recorded Aspirin [Adult Low Dose Aspirin EC] 81 mg PO BID #60 tablet. 08/08/19 Docusate [Colace] 100 mg PO DAILY #30 capsule 08/08/19 Famotidine [Pepcid] 20 mg PO DAILY tab 08/08/19 Hydrocodone/Acetaminophen [[place] 1 each PO Q6HR PRN #28 tab 08/08/19 5-325] Allergies Allergy/AdvReac Type Severity Reaction Status Date / Time Sulfa (Sulfonamide Allergy Unknown Verified 08/06/19 06:20 Antibiotics) adhesive tape AdvReac Rash/Hives Verified 08/06/19 06:20 Review of Systems ROS Other: All systems not noted in ROS Statement are negative. <William Salomon - Last Filed: 05/09/20 20:40> ROS Other: All systems not noted in ROS Statement are negative. <Roberto Panchal - Last Filed: 05/09/20 21:17> ROS Statement: Those systems with pertinent positive or pertinent negative responses have been documented in the HPI. Past Medical History Past Medical History: GERD/Reflux, Hypertension, Pneumonia Additional Past Medical History / Comment(s): hx migraines, arthritis, 3 bulging disks History of Any Multi-Drug Resistant Organisms: None Reported Past Surgical History: Appendectomy, Breast Surgery, Cholecystectomy, Hernia Repair, Hysterectomy, Joint Replacement, Orthopedic Surgery Additional Past Surgical History / Comment(s): CATARACT REMOVAL OF RIGHT EYE.Ovarian cyst removed. Rt hip replacement. Carpal tunnel-rt. Cyst removed rt breast, left hip anterior approach arthroplasty Past Anesthesia/Blood Transfusion Reactions: Motion Sickness Past Psychological History: No Psychological Hx Reported Smoking Status: Never smoker Past Alcohol Use History: None Reported Past Drug Use History: None Reported - Past Family History Sister(s) History Unknown: Yes Additional Family Medical History / Comment(s): Patient has one sister the patient has no contact with her. No brothers. Patient has one son with osteoarthritis and hip replacement, 1 daughter with no major medical problems. Father Family Medical History: Cancer Additional Family Medical History / Comment(s): Father at age 80 from prostate cancer. Mother Family Medical History: Cancer Additional Family Medical History / Comment(s): Mother at age 50 from tamiko ast cancer. <Roberto Panchal - Last Filed: 05/09/20 21:17> General Exam Limitations: physical limitation General appearance: alert, in distress Head exam: Present: atraumatic, normocephalic, normal inspection Eye exam: Present: normal appearance, PERRL, EOMI Pupils: Present: normal accommodation ENT exam: Present: normal exam, normal oropharynx, mucous membranes moist Neck exam: Present: normal inspection, full ROM. Absent: tenderness Respiratory exam: Present: normal lung sounds bilaterally Cardiovascular Exam: Present: regular rate, normal rhythm, normal heart sounds Extremities exam: Present: normal inspection, tenderness (Tenderness over the lateral aspect of the left hip.), normal capillary refill. Absent: full ROM (Limited range of motion due to pain.) Back exam: Present: normal inspection, full ROM. Absent: tenderness Neurological exam: Present: alert, oriented X3 Psychiatric exam: Present: normal affect, normal mood Skin exam: Present: warm, dry, intact, normal color <Roberto Panchal - Last Filed: 05/09/20 21:17> Course Vital Signs 05/09/20 05/09/20 05/09/20 17:30 18:10 18:12 Temperature 97.9 F Pulse Rate 83 92 Respiratory 18 6 L 15 Rate Blood Pressure 129/87 98/75 O2 Sat by Pulse 95 80 L 97 Oximetry 05/09/20 05/09/20 05/09/20 18:19 19:00 19:33 Temperature Pulse Rate 86 98 105 H Respiratory 16 18 22 Rate Blood Pressure 150/80 133/86 153/83 O2 Sat by Pulse 98 94 L 97 Oximetry 05/09/20 05/09/20 05/09/20 20:03 20:11 20:12 Temperature Pulse Rate 105 H 61 94 Respiratory 20 14 14 Rate Blood Pressure 156/76 148/80 150/97 O2 Sat by Pulse 96 95 96 Oximetry 05/09/20 05/09/20 05/09/20 20:17 20:25 20:31 Temperature Pulse Rate 96 92 87 Respiratory 16 16 16 Rate Blood Pressure 135/80 137/76 135/75 O2 Sat by Pulse 96 98 99 Oximetry 05/09/20 05/09/20 05/09/20 20:35 20:37 20:40 Temperature Pulse Rate 89 85 Respiratory 16 16 Rate Blood Pressure 133/80 134/73 O2 Sat by Pulse 99 97 97 Oximetry 05/09/20 05/09/20 20:58 21:03 Temperature Pulse Rate 95 92 Respiratory 20 16 Rate Blood Pressure 145/79 126/77 O2 Sat by Pulse 96 94 L Oximetry Procedures - Procedural Sedation Procedural Sedation Start Time: 20:10 Procedural Sedation Stop Time: 20:41 Indications: fracture/dislocation reduction ASA Class: II Mallampati Airway Score: 2 Preparation: pony worker applied, pulse oximeter, capnometry used, supplemental O2 applied IV Etomidate Dose (mgs): 14 Complications: hypoxia Interventions: assist by BVM, other (Patient did have some hypoventilation and hypoxia. Patient was assisted by [id number] for approximately 2 minutes. Patient did well and started breathing well on her own as the etomidate wore off.) <William Salomon - Last Filed: 05/09/20 20:40> Medical Decision Making - Lab Data Result diagrams: 05/09/20 17:58 05/09/20 17:58 <William Salomon - Last Filed: 05/09/20 20:40> - Lab Data Result diagrams: 05/09/20 17:58 05/09/20 17:58 <Roberto Panchal - Last Filed: 05/09/20 21:17> - Medical Decision Making Patient is 79-year-old male presenting to emergency Department with a chief complaint of left hip pain. Patient fell and now she has pain in the left hip and unable to move it. X-ray reveals lateral hip dislocation. Patient was gi piper fentanyl in the ambulance. Patient was in significant discomfort on initial evaluation and is feeling due to the pain. She was also complaining of spasms of the left hip. Patient was given 1 mg of Dilaudid and 1 mg of Valium. Several minutes after patient became apneic. Patient was immediately placed on a nonrebreather and was given Narcan. Patient returned to baseline but she did continue to have pain afterward. She was given Toradol and Ativan. I was able to perform the reduction of the left hip in conjunction with Dr. Salomon. Repeat x-rays confirmed successful reduction. He performed the sedations. I spoke with HAROON kraft who states the patient can either be admitted or discharged. Patient is slowly coming out of the sedation. I spoke with her daughter who states she would like to have the patient admitted. Patient continues to be drowsy but is slowly improving. Patient will be admitted for observation and will be seen tomorrow by orthopedics. Case discussed with Dr. Salomon. Admitting physician is (Roberto Panchal) - Lab Data Lab Results 05/09/20 05/09/20 05/09/20 Range/Units 17:58 17:58 17:58 WBC 13.3 H (3.8-10.6) k/uL RBC 4.82 (3.80-5.40) m/uL Hgb 15.0 (11.4-16.0) gm/dL Hct 45.0 (34.0-46.0) % MCV 93.4 (80.0-100.0) fL MCH 31.1 (25.0-35.0) pg MCHC 33.2 (31.0-37.0) g/dL RDW 13.2 (11.5-15.5) % Plt Count 236 (150-450) k/uL Neutrophils % 76 % Lymphocytes % 17 % Monocytes % 5 % Eosinophils % 1 % Basophils % 0 % Neutrophils # 10.1 H (1.3-7.7) k/uL Lymphocytes # 2.2 (1.0-4.8) k/uL Monocytes # 0.7 (0-1.0) k/uL Eosinophils # 0.1 (0-0.7) k/uL Basophils # 0.0 (0-0.2) k/uL PT 9.9 (9.0-12.0) sec INR 1.0 (<1.2) APTT 22.2 (22.0-30.0) sec Sodium 136 L (137-145) mmol/L Potassium 4.6 (3.5-5.1) mmol/L Chloride 109 H (98-107) mmol/L Carbon Dioxide 19 L (22-30) mmol/L Anion Gap 8 mmol/L BUN 23 H (7-17) mg/dL Creatinine 0.72 (0.52-1.04) mg/dL Est GFR (CKD-EPI)AfAm >90 (>60 ml/min/1.73 sqM) Est GFR (CKD-EPI)NonAf 82 (>60 ml/min/1.73 sqM) Glucose 104 H (74-99) mg/dL Calcium 9.7 (8.4-10.2) mg/dL Total Bilirubin 0.5 (0.2-1.3) mg/dL AST 28 (14-36) U/L ALT 15 (4-34) U/L Alkaline Phosphatase 112 (38-126) U/L Total Protein 7.1 (6.3-8.2) g/dL Albumin 4.2 (3.5-5.0) g/dL Disposition <William Salomon - Last Filed: 05/09/20 20:40> Is patient prescribed a controlled substance at d/c from ED?: No Time of Disposition: 21:17 <Roberto Panchal - Last Filed: 05/09/20 21:17> Clinical Impression: Fall, Hip dislocation, left Disposition: ADMITTED IP TO THIS [facility] Condition: Good Additional Instructions: Patient will be admitted Referrals: Galdino Huber MD [Primary Care Provider] - 1-2 days
[2020-05-09 18:20] LABS: Basophils % (A) 0 %; Eosinophils # (A) 0.1 k/uL (0-0.7); Eosinophils % (A) 1 %; Lymphocytes # (A) 2.2 k/uL (1.0-4.8); Lymphocytes % (A) 17 %; MCH 31.1 pg (25.0-35.0); MCHC 33.2 g/dL (31.0-37.0); MCV 93.4 fL (80.0-100.0); Mean Platelet Volume 7.8; Monocytes # (A) 0.7 k/uL (0-1.0); Monocytes % (A) 5 %; Neutrophils # (A) 10.1 k/uL (1.3-7.7); Neutrophils % (A) 76 %; Platelet Count 236 k/uL (150-450); RBC 4.82 m/uL (3.80-5.40); RDW 13.2 % (11.5-15.5); WBC 13.3 k/uL (3.8-10.6)
[2020-05-09 18:31] LABS: ALT 15 U/L (4-34); AST 28 U/L (14-36); African American GFR (CKD) >90 (>60 ml/min/1.73 sqM); Albumin 4.2 g/dL (3.5-5.0); Alkaline Phosphatase 112 U/L (38-126); Anion Gap 8 mmol/L; Blood Urea Nitrogen 23 mg/dL (7-17); Calcium 9.7 mg/dL (8.4-10.2); Carbon Dioxide 19 mmol/L (22-30); Chloride 109 mmol/L (98-107); Glucose 104 mg/dL (74-99); Non-African American GFR(CKD) 82 (>60 ml/min/1.73 sqM); Potassium 4.6 mmol/L (3.5-5.1); Sodium 136 mmol/L (137-145); Total Bilirubin 0.5 mg/dL (0.2-1.3); Total Protein 7.1 g/dL (6.3-8.2)
[2020-05-09 18:55] LABS: Partial Thromboplastin Time 22.2 sec (22.0-30.0); Prothrombin Time 9.9 sec (9.0-12.0)
[2020-05-09] MEDS ORDERED: ORPHENADRINE 30 MG/ML 2 ML VIAL IM STA (19:15)
--- NOTE | 2020-05-09 19:19 | XR ---
EXAMINATION TYPE: XR Hip LT and AP Pelvis DATE OF EXAM: 05/09/2020 COMPARISON: 08/22/2019 HISTORY: Left hip pain TECHNIQUE: 3 views FINDINGS: There are bilateral hip prostheses. There is lateral dislocation of the prosthetic left fem oral head. I see no fracture. IMPRESSION: Lateral dislocation of the left hip prosthesis.
[2020-05-09] MEDS ORDERED: KETOROLAC 15 MG/ML 1 ML VIAL IVP STA (19:24)
--- NOTE | 2020-05-09 19:26 | XR ---
EXAMINATION TYPE: XR chest 1V DATE OF EXAM: 05/09/2020 COMPARISON: NONE HISTORY: Chest pain TECHNIQUE: 2 views FINDINGS: There is no heart failure nor confluent pneumonic infiltrate. Costophrenic angles are clear . There are chest leads. Thoracic aorta is atheromatous. IMPRESSION: No active cardiopulmonary disease. Heart is probably enlarged.
[2020-05-09] MEDS ORDERED: ETOMIDATE 2 MG/ML 10 ML VIAL IVP STA (19:45)
[2020-05-09] MEDS ORDERED: LORazepam 2 MG/ML INJ IV STA (19:46)
--- NOTE | 2020-05-09 20:39 | XR ---
EXAMINATION TYPE: XR Hip Limited LT DATE OF EXAM: 05/09/2020 COMPARISON: Today HISTORY: Post reduction TECHNIQUE: Single view FINDINGS: There is anatomic reduction of the dislocated left hip prosthesis. IMPRESSION: Anatomic reduction. No fracture seen.
[2020-05-09 21:05] VITALS: RESP 16
[2020-05-09] MEDS ORDERED: LORazepam 2 MG/ML INJ IV PRN (21:12)
[2020-05-09] MEDS ORDERED: ACETAMINOPHEN TAB 325 MG TAB PO PRN (21:12)
[2020-05-09] MEDS ORDERED: traMADol 50 MG TAB PO PRN (21:12)
[2020-05-09] MEDS ORDERED: NALOXONE 0.4 MG/ML 1 ML VIAL IV PRN (21:12)
[2020-05-09] MEDS: SODIUM CHLORIDE 0.9% 1,000 ML IV SCH (23:10)
[2020-05-10 02:29] VITALS: PULSE 84
[2020-05-10 08:58] VITALS: BP 125/69; TEMP 98
[2020-05-10] MEDS ORDERED: amLODIPine 10 MG TAB PO SCH (09:30)
--- NOTE | 2020-05-10 10:08 | P.CONS ---
History of Present Illness - Reason for Consult Consult date: 05/10/20 - History of Present Illness HISTORY OF PRESENT ILLNESS This is a 79-year-old female patient of Dr. Galdino Huber with past medical history of hypertension, gastroesophageal reflux disease, seasonal ALLERGIES, migraine headaches, chronic back pain secondary to degenerative disc disease. Patient last hospitalization was in July 2019 at which time she underwent an anterior approach left hip arthroplasty with Dr. Be. Patient did not have any postop complications. Patient has been doing well and his had full range of motion to her left hip. Yesterday she bent over and she could feel that the hip "let go and came out of the socket." She denied having any falls and no loss of consciousness, dizziness or lightheadedness. She came into [facility] emergency center and x-ray of the hip revealed lateral dislocation of the left hip prosthesis. Patient subsequently underwent reduction and a repeat hip x-ray revealed anatomical reduction. No fracture seen. Patient was afebrile, heart rate 84, blood pressure 120/77, pulse ox 96% on room air. WBC 13.3, hemoglobin 15, platelet count 236. Sodium 136, potassium 4.6, chloride 109, CO2 19, BUN 23 and creatinine 0.72. Glucose 104, liver function tests normal. Patient was placed in the observation unit under the care of orthopedics and we have been asked to see in consultation. Medication reconciliation has been reviewed. At the time of evaluation, patient denies having any hip pain and feels significantly better. Ocasio catheter was placed in the emergency center. REVIEW OF SYSTEMS Constitutional: No fever, no chills, no night sweats. No weight change. No weakness, fatigue or lethargy. No daytime sleepiness. EENT: No headache. No blurred vision or double vision, no loss of vision. No loss of Hearing, no ringing in the ears, no dizziness. No nasal drainage or congestion. No epistaxis. No sore throat. Lungs: No shortness of breath, cough, no sputum production. No wheezing. Cardiovascular: No chest pain, no lower extremity edema. No palpitations. No paroxysmal nocturnal dyspnea. No orthopnea. No lightheadedness or dizziness. No syncopal episodes. Abdominal: No abdominal pain. No nausea, vomiting. No diarrhea. No constipation. No bloody or tarry stools.. No loss of appetite. Genitourinary: No dysuria, increased frequency, urgency. No urinary retention. Musculoskeletal: No myalgias. No muscle weakness, no gait dysfunction, no freq uent falls. No back pain. No neck pain. Integumentary: No wounds, no lesions. No rash or pruritus. No unusual bruising. No change in hair or nails. Neurologic: No aphasia. No facial droop. No change in mentation. No head injury. No headache. No paralysis. No paresthesia. Psychiatric: No depression. No anxiety. No mood swings. Endocrine: No abnormal blood sugars. SOCIAL HISTORY Patient is a lifelong nonsmoker, no marijuana or illicit drug use, no alcohol use. 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 FAMILY HISTORY Patient's father at age 80 from prostate cancer. Mother at age 50 from breast cancer. Patient has one sister that she has no contact with. She does not have any brothers. Patient has one son with osteoarthritis and hip replacement. Patient has one daughter with no major medical problems. PHYSICAL EXAMINATION Gen: This is a 79-year-old female. She is resting in bed and appears to be comfortable and in no acute distress. HEENT: Head is atraumatic, normocephalic. Pupils equal, round. Sclerae is anicteric. NECK: Supple. No JVD. No lymphadenopathy. No thyromegaly. LUNGS: Clear to auscultation. No wheezes or rhonchi. No intercostal retractions. HEART: Regular rate and rhythm. No murmur. ABDOMEN: Soft. Bowel sounds are present. No masses. No tenderness. Ocasio catheter draining clear sebastian urine. EXTREMITIES: No pedal edema. No calf tenderness. No abnormality noted to the left hip, no shortening of the leg or rotation. NEUROLOGICAL: Patient is awake, alert and oriented x3. Cranial nerves 2 through 12 are grossly intact. ASSESSMENT AND PLAN 1. Lateral dislocation of left hip prosthesis, status post reduction. 2. Hypertension, stable. Continue Norvasc 10 mg daily. Felodipine can be resumed at discharge. 3. Gastroesophageal reflux disease. Continue omeprazole. 4. Seasonal ALLERGIES. 5. Migraine headaches, stable. 6. Chronic back pain secondary to degenerative disc disease, stable. Thank you Dr. Collier for this consultation. Patient placed on the observation unit. Discharge plan: Home Impression and plan of care have been directed as dictated by the signing physician. Kathi Monahan nurse practitioner acting as scribe for signing physician. Past Medical History Past Medical History: GERD/Reflux, Hypertension, Pneumonia Additional Past Medical History / Comment(s): hx migraines, arthritis, 3 bulging disks History of Any Multi-Drug Resistant Organisms: None Reported Past Surgical History: Appendectomy, Breast Surgery, Cholecystectomy, Hernia Repair, Hysterectomy, Joint Replacement, Orthopedic Surgery Additional Past Surgical History / Comment(s): CATARACT REMOVAL OF RIGHT EYE.Ovarian cyst removed. Rt hip replacement. Carpal tunnel-rt. Cyst removed rt breast, left hip anterior approach arthroplasty Past Anesthesia/Blood Transfusion Reactions: Motion Sickness Additional Past Anesthesia/Blood Transfusion Reaction / Comm: lethargy Past Psychological History: No Psychological Hx Reported Smoking Status: Never smoker Past Alcohol Use History: None Reported Additional Past Alcohol Use History / Comment(s): Patient is a lifelong nonsmoker, no marijuana or illicit drug use, no alcohol use. Past Drug Use History: None Reported - Past Family History Sister(s) History Unknown: Yes Additional Family Medical History / Comment(s): Patient has one sister the patient has no contact with her. No brothers. Patient has one son with osteoarthritis and hip replacement, 1 daughter with no major medical problems. Father Family Medical History: Cancer Additional Family Medical History / Comment(s): Father at age 80 from prostate cancer. Mother Family Medical History: Cancer Additional Family Medical History / Comment(s): Mother at age 50 from breast cancer. Medications and Allergies Home Medications Medication Instructions Recorded Confirmed Type Cetirizine HCl [Zyrtec] 10 mg PO QAM 07/08/15 05/09/20 History Cholecalciferol [Vitamin D3 (25 1,000 unit PO DAILY 07/08/15 05/09/20 History Mcg = 1000 Iu)] Felodipine [Felodipine ER] 10 mg PO QAM 07/08/15 05/09/20 History Omeprazole [PriLOSEC] 20 mg PO AC-BRKFST 07/08/15 05/09/20 History Allergies Allergy/AdvReac Type Severity Reaction Status Date / Time adhesive tape Allergy Rash/Hives Verified 05/09/20 21:37 Sulfa (Sulfonamide Allergy Unknown Verified 05/09/20 21:37 Antibiotics) Physical Exam Vitals: Vital Signs Temp Pulse Pulse Pulse Resp BP BP 05/10/20 08:53 98.0 F 70 84 16 125/69 05/10/20 02:30 84 16 05/10/20 02:29 97.6 F 84 16 128/77 05/09/20 22:35 97.6 F 90 16 128/77 05/09/20 21:03 92 16 126/77 05/09/20 20:58 95 20 145/79 05/09/20 20:40 85 16 134/73 05/09/20 20:37 05/09/20 20:35 89 16 133/80 05/09/20 20:31 87 16 135/75 05/09/20 20:25 92 16 137/76 05/09/20 20:17 96 16 135/80 05/09/20 20:12 94 14 150/97 05/09/20 20:11 61 14 148/80 05/09/20 20:03 105 H 20 156/76 05/09/20 19:33 105 H 22 153/83 05/09/20 19:00 98 18 133/86 05/09/20 18:19 86 16 150/80 05/09/20 18:12 15 05/09/20 18:10 92 6 L 98/75 05/09/20 17:30 97.9 F 83 18 129/87 Pulse Ox 05/10/20 08:53 96 05/10/20 02:30 05/10/20 02:29 96 05/09/20 22:35 95 05/09/20 21:03 94 L 05/09/20 20:58 96 05/09/20 20:40 97 05/09/20 20:37 97 05/09/20 20:35 99 05/09/20 20:31 99 05/09/20 20:25 98 05/09/20 20:17 96 05/09/20 20:12 96 05/09/20 20:11 95 05/09/20 20:03 96 05/09/20 19:33 97 05/09/20 19:00 94 L 05/09/20 18:19 98 05/09/20 18:12 97 05/09/20 18:10 80 L 05/09/20 17:30 95 Intake and Output 05/09/20 05/10/20 05/10/20 22:59 06:59 14:59 Intake Total 450 500 Output Total 900 700 Balance -450 -200 Intake: Intake, IV Titration 450 Amount Sodium Chloride 0.9% 1, 450 000 ml @ 75 mls/hr IV . [id number] [facility] Rx#:[id number] Oral 500 Output: Urine 900 700 Uretheral (Ocasio) 200 Other: Voiding Method Indwelling Catheter Indwelling Catheter Indwelling Catheter Weight 81.647 kg Results CBC & Chem 7: 05/09/20 17:58 05/09/20 17:58 Labs: Abnormal Lab Results - Last 24 Hours (Table) 05/09/20 05/09/20 Range/Units 17:58 17:58 WBC 13.3 H (3.8-10.6) k/uL Neutrophils # 10.1 H (1.3-7.7) k/uL Sodium 136 L (137-145) mmol/L Chloride 109 H (98-107) mmol/L Carbon Dioxide 19 L (22-30) mmol/L BUN 23 H (7-17) mg/dL Glucose 104 H (74-99) mg/dL
[2020-05-10] MEDS: SODIUM CHLORIDE 0.9% 1,000 ML IV SCH (11:10)
--- NOTE | 2020-05-10 12:02 | P.HPOR ---
History of Present Illness H&P Date: 05/10/20 Chief Complaint: Left periprosthetic hip dislocation Patient is a 79-year-old female who presented to [facility] yesterday with regards to an injury to her left lower extremity. Patient was outside in her yard when she bent over to sisal picker a stick and she noted the hip gave out. After that event she was unable to weight-bear, EMS was contacted and brought patient to the hospital. Upon arrival to the hospital, images were done, they demonstrated a dislocation of her left periprosthetic hip. I was contacted by the emergency room staff regarding the patient, I located them to attempt a closed reduction with sedation. This was successful, postop x-rays demonstrated a relocated left periprosthetic hip. Patient was then admitted to the observation unit overnight for evaluation. Patient was evaluated today in the observation unit, she is resting comfortably. Ocasio catheter is in place. Dr. Be did replace the hip direct anterior approach to home July 2019. Patient has been doing very well since the surgery, she's had no other acute problems. After the fall, she has no other orthopedic complaints at this time. Review of Systems Constitutional: Reports as per HPI Past Medical History Past Medical History: GERD/Reflux, Hypertension, Pneumonia Additional Past Medical History / Comment(s): hx migraines, arthritis, 3 bulging disks History of Any Multi-Drug Resistant Organisms: None Reported Past Surgical History: Appendectomy, Breast Surgery, Cholecystectomy, Hernia Rep air, Hysterectomy, Joint Replacement, Orthopedic Surgery Additional Past Surgical History / Comment(s): CATARACT REMOVAL OF RIGHT EYE.Ovarian cyst removed. Rt hip replacement. Carpal tunnel-rt. Cyst removed rt breast, left hip anterior approach arthroplasty Past Anesthesia/Blood Transfusion Reactions: Motion Sickness Additional Past Anesthesia/Blood Transfusion Reaction / Comment(s): lethargy Past Psychological History: No Psychological Hx Reported Smoking Status: Never smoker Past Alcohol Use History: None Reported Additional Past Alcohol Use History / Comment(s): Patient is a lifelong nonsmoker, no marijuana or illicit drug use, no alcohol use. Past Drug Use History: None Reported - Past Family History Sister(s) History Unknown: Yes Additional Family Medical History / Comment(s): Patient has one sister the patient has no contact with her. No brothers. Patient has one son with osteoarthritis and hip replacement, 1 daughter with no major medical problems. Father Family Medical History: Cancer Additional Family Medical History / Comment(s): Father at age 80 from prostate cancer. Mother Family Medical History: Cancer Additional Family Medical History / Comment(s): Mother at age 50 from breast cancer. Medications and Allergies Home Medications Medication Instructions Recorded Confirmed Type Cetirizine HCl [Zyrtec] 10 mg PO QAM 07/08/15 05/09/20 History Cholecalciferol [Vitamin D3 (25 1,000 unit PO DAILY 07/08/15 05/09/20 History Mcg = 1000 Iu)] Felodipine [Felodipine ER] 10 mg PO QAM 07/08/15 05/09/20 History Omeprazole [PriLOSEC] 20 mg PO AC-BRKFST 07/08/15 05/09/20 History Allergies Allergy/AdvReac Type Severity Reaction Status Date / Time adhesive tape Allergy Rash/Hives Verified 05/09/20 21:37 Sulfa (Sulfonamide Allergy Unknown Verified 05/09/20 21:37 Antibiotics) Physical Examination Left lower extremity: No obvious open lesions or sores, no ceramic areas of erythema or soft tissue swelling Incision over the anterior proximal left femur is well healed Alignment is maintained of the left lower extremity Logroll maneuver the hip reproduces no pain, and appears stable as I flexed the hip to 90 and also initiated internal and external rotation Soft, no tenderness with palpation Distal neurovascular exam is intact. Results - Labs Labs: Abnormal Lab Results - Last 24 Hours (Table) 05/09/20 05/09/20 Range/Units 17:58 17:58 WBC 13.3 H (3.8-10.6) k/uL Neutrophils # 10.1 H (1.3-7.7) k/uL Sodium 136 L (137-145) mmol/L Chloride 109 H (98-107) mmol/L Carbon Dioxide 19 L (22-30) mmol/L BUN 23 H (7-17) mg/dL Glucose 104 H (74-99) mg/dL H & H 05/09/20 Range/Units 17:58 Hgb 15.0 (11.4-16.0) gm/dL Hct 45.0 (34.0-46.0) % Coagulation 05/09/20 Range/Units 17:58 INR 1.0 (<1.2) Result Diagrams: 05/09/20 17:58 05/09/20 17:58 - Diagnostic results Hip x-ray: report reviewed, image reviewed (Both pre- Reduction and postreduction films were reviewed. No evidence of acute fractures or dislocations present at this time.) Assessment and Plan Assessment: Left periprosthetic hip dislocation, status post closed reduction History of direct anterior left total hip arthroplasty July 2019 Plan: I was able to discuss the case, including with physical exam findings and imaging studies my attending Dr. Collier. No orthopedic surgical intervention recommended at this time. Discussed with patient current restrictions, this to include sitting in a deep chair, crossing legs or bending at the waist. She may weight-bear as tolerated this time Patient will be prescribed tramadol 50 mg one every 6 as needed for discomfort Advised patient to contact the office on Tuesday to schedule follow-up with Dr. Be for x-ray evaluation next week Patient will be discharged home today Time with Patient: Less than 30
--- NOTE | 2020-05-10 12:07 | P.DS ---
Providers Date of admission: 05/09/20 21:06 Expected date of discharge: 05/10/20 Attending physician: Lionel Collier Consults: 05/09/20 21:12 Consult Physician Stat Consulting Provider: Grzegorz Carrreo Reason/Comments: Left hip dislocation Do you want consulting provider notified?: Yes Primary care physician: [facility] Course: Date of admission: 05/09/2020 Date of discharge: 05/10/2020 Admission diagnosis: Status post closed reduction left periprosthetic hip dislocation Discharge diagnosis: Same Attending physician: Eulogio Collier Surgical procedures: Closed reduction left periprosthetic hip dislocation Brief history: Patient is a 79-year-old female who presented to [facility] on 05/09/2020 after sustaining a dislocation of her left hip while bending over in her yard. Emergency room staff performed a closed reduction with sedation. She was admitted to the observation unit for management and observation. Hospital course: After being admitted to the observation 4, patient fully catheter into the night. She was able to weight-bear as no acute events. Her pain is well-controlled. She'll be discharged home on 05/10/2020. Discharge condition/disposition: Patient will be discharged [home] in stable condition. Discharge medications: Instructions are given on resumption of patient's normal daily medications per primary care recommendation, in addition patient will be prescribed tramadol 50 mg. Discharge instructions: 1. Weight-bear as tolerated, recommend use of a walker 2. Avoid bending at the waist, progressive legs, sleeping on the left side or deep-seated chairs 3. Pain medication as needed 4. Recommend contact advanced orthopedics on Tuesday to call for an appointment with Dr. Be Procedures: Closed reduction left periprosthetic hip dislocation Patient Condition at Discharge: Good Plan - Discharge Summary New Discharge Prescriptions: New traMADol HCl [Ultram] 50 mg PO Q6H PRN #15 tab PRN Reason: Pain No Action Omeprazole [PriLOSEC] 20 mg PO AC-BRKFST Cholecalciferol [Vitamin D3 (25 Mcg = 1000 Iu)] 1,000 unit PO DAILY Felodipine [Felodipine ER] 10 mg PO QAM Cetirizine HCl [Zyrtec] 10 mg PO QAM Discharge Medication List Cetirizine HCl [Zyrtec] 10 mg PO QAM 07/08/15 [History] Cholecalciferol [Vitamin D3 (25 Mcg = 1000 Iu)] 1,000 unit PO DAILY 07/08/15 [History] Felodipine [Felodipine ER] 10 mg PO QAM 07/08/15 [History] Omeprazole [PriLOSEC] 20 mg PO AC-BRKFST 07/08/15 [History] traMADol HCl [Ultram] 50 mg PO Q6H PRN #15 tab 05/10/20 [Rx] Follow up Appointment(s)/Referral(s): Galdino Huber MD [Primary Care Provider] - 1 Week Jose Be DO [Doctor of Osteopathic Medicine] - 1 Week Activity/Diet/Wound Care/Special Instructions: Orthopedic discharge instructions: 1. Pain medication as needed 2. Avoid crossing the legs, sitting in the deep chair, sleeping on the left side, bending at the waist 3. Weight-bear as tolerated 4. Plan for follow-up Dr. Be in 1 week Discharge Disposition: HOME SELF-CARE
[2020-05-10 16:36] LABS: Bacteria,Urine Few /hpf; Mucus,Urine Occasional /hpf; RBC,Urine 5 /hpf (0-5); Squamous Epithelial Cell,Urine 5 /hpf (0-4); WBC,Urine 55 /hpf (0-5)
[2020-05-10 16:37] LABS: Color,Urine Yellow
[2020-05-10 16:38] LABS: Appearance,Urine Cloudy (Clear); Protein,Urine 1+ (Negative)
[2020-05-10 16:39] LABS: Bilirubin,Urine Negative (Negative); Blood,Urine Small (Negative); Glucose,Urine (UA) Negative (Negative); Ketones,Urine Negative (Negative); Leukocyte Esterase,Urine Large (Negative); Nitrite,Urine Negative (Negative); Urobilinogen,Urine <2.0 mg/dL (<2.0)
[2020-05-11] MEDS ORDERED: PANTOPRAZOLE 40 MG TABLET PO SCH (07:30)
== END 2020-05-10 14:00 | disposition home or self-care (01) ==
LOC: EC 17:19 → 1SOBS 21:06
PROVIDERS: ADMIT Orthopaedic Surgery; ATTEND Orthopaedic Surgery
DX: T84.021A Dislocation of internal left hip prosthesis, initial encounter (principal); R09.02 Hypoxemia; T40.2X5A Adverse effect of other opioids, initial encounter; T42.4X5A Adverse effect of benzodiazepines, initial encounter; K21.9 Gastro-esophageal reflux disease without esophagitis; I10 Essential (primary) hypertension; G43.909 Migraine, unspecified, not intractable, without status migrainosus; M19.90 Unspecified osteoarthritis, unspecified site; R06.81 Apnea, not elsewhere classified; J30.2 Other seasonal allergic rhinitis; G89.29 Other chronic pain; M54.9 Dorsalgia, unspecified; Z79.82 Long term (current) use of aspirin; Z79.899 Other long term (current) drug therapy; Z88.2 Allergy status to sulfonamides; Z91.048 Other nonmedicinal substance allergy status; W18.30XA Fall on same level, unspecified, initial encounter; Y92.007 Garden or yard of unspecified non-institutional (private) residence as the place of occurrence of the external cause; Z96.643 Presence of artificial hip joint, bilateral; Z90.49 Acquired absence of other specified parts of digestive tract; Z90.710 Acquired absence of both cervix and uterus; Z87.01 Personal history of pneumonia (recurrent); Z98.41 Cataract extraction status, right eye; Z87.42 Personal history of other diseases of the female genital tract; Z82.61 Family history of arthritis; Z80.42 Family history of malignant neoplasm of prostate; Z80.3 Family history of malignant neoplasm of breast
CPT/HCPCS: 96372; 96374; 96375; 99285; 27265; 36415; 93005; 80053; 85025; 85610; 85730; 81001; 87086; 87077; 87186; 73501; 73502; 71045; 99152; G0378 ×2; J2060; J2310; J2360; J3360; J2405; J1170; J1885

== ENCOUNTER 2020-11-19 15:58 | Emergency (ER) | payer MEDICARE ==
[2020-11-19 16:06] VITALS: RESP 18; TEMP 97.5
[2020-11-19] MEDS ORDERED: MORPHINE SULFATE 4 MG/ML SYRINGE IVP STA (16:12)
--- NOTE | 2020-11-19 16:27 | XR ---
EXAMINATION TYPE: XR Hip Limited LT DATE OF EXAM: 11/19/2020 COMPARISON: 05/09/2020, and 06/25/2020 HISTORY: Pain TECHNIQUE: One view submitted. FINDINGS: There appears to be a posterior dislocation of the femoral component of the left hip prosth eses. Remaining osseous structures intact as visualized IMPRESSION: Prosthetic hip dislocation
[2020-11-19] MEDS ORDERED: SODIUM CHLORIDE 0.9% 500 ML 500 ML IV STA (16:47)
[2020-11-19] MEDS ORDERED: PROPOFOL 10 MG/ML 20 ML VIAL IV STA (16:47)
[2020-11-19] MEDS ORDERED: PROPOFOL 10 MG/ML 20 ML VIAL IV ONE (17:01)
--- NOTE | 2020-11-19 17:14 | ED ---
Lower Extremity Injury HPI - General Source: patient, EMS, RN notes reviewed Mode of arrival: EMS Limitations: no limitations <Shai Garcia - Last Filed: 11/19/20 17:17> <Bravo Roy - Last Filed: 11/19/20 17:20> - General Chief Complaint: Extremity Injury, Lower Stated Complaint: hip dislocation Time Seen by Provider: 11/19/20 16:00 - History of Present Illness Initial Comments: 72-year-old female presents emergency Department via EMS she went to left hip pain. Patient states she cannot afford felt a pop of her left hip. Patient's had an surgery by Dr. Be in July. Patient had dislocation prior left hip. Patient states it feels very similar patient states that she received 200 mg of fentanyl by EMS which minimally helped her pain at this time. (Shai Garcia) - Related Data Home Medications Medication Instructions Recorded Confirmed Cetirizine HCl [Zyrtec] 10 mg PO QAM 07/08/15 05/09/20 Cholecalciferol [Vitamin D3 (25 1,000 unit PO DAILY 07/08/15 05/09/20 Mcg = 1000 Iu)] Felodipine [Felodipine ER] 10 mg PO QAM 07/08/15 05/09/20 Omeprazole [PriLOSEC] 20 mg PO AC-BRKFST 07/08/15 05/09/20 Previous Rx's Medication Instructions Recorded traMADol HCl [Ultram] 50 mg PO Q6H PRN #15 tab 05/10/20 Allergies Allergy/AdvReac Type Severity Reaction Status Date / Time adhesive tape Allergy Rash/Hives Verified 05/09/20 21:37 hydromorphone Allergy Anaphylaxis Verified 11/19/20 16:07 Sulfa (Sulfonamide Allergy Unknown Verified 05/09/20 21:37 Antibiotics) Review of Systems ROS Other: All systems not noted in ROS Statement are negative. <Shai Garcia - Last Filed: 11/19/20 17:17> ROS Other: All systems not noted in ROS Statement are negative. <Bravo Roy - Last Filed: 11/19/20 17:20> ROS Statement: Those systems with pertinent positive or pertinent negative responses have been documented in the HPI. Past Medical History Past Medical History: GERD/Reflux, Hypertension, Pneumonia Additional Past Medical History / Comment(s): hx migraines, arthritis, 3 bulging disks History of Any Multi-Drug Resistant Organisms: None Reported Past Surgical History: Appendectomy, Breast Surgery, Cholecystectomy, Hernia Repair, Hysterectomy, Joint Replacement, Orthopedic Surgery Additional Past Surgical History / Comment(s): CATARACT REMOVAL OF RIGHT EYE.Ovarian cyst removed. Rt hip replacement. Carpal tunnel-rt. Cyst removed rt breast, left hip anterior approach arthroplasty Past Anesthesia/Blood Transfusion Reactions: Motion Sickness Additional Past Anesthesia/Blood Transfusion Reaction / Comment(s): lethargy Past Psychological History: No Psychological Hx Reported Smoking Status: Never smoker Past Alcohol Use History: None Reported Past Drug Use History: None Reported - Past Family History Sister(s) History Unknown: Yes Additional Family Medical History / Comment(s): Patient has one sister the patient has no contact with her. No brothers. Patient has one son with osteoarthritis and hip replacement, 1 daughter with no major medical problems. Father Family Medical History: Cancer Additional Family Medical History / Comment(s): Father at age 80 from prostate cancer. Mother Family Medical History: Cancer Additional Family Medical History / Comment(s): Mother at age 50 from breast cancer. <Shai Garcia M - Last Filed: 11/19/20 17:17> General Exam General appearance: alert, in no apparent distress Head exam: Present: atraumatic, normocephalic, normal inspection Neck exam: Present: normal inspection, full ROM. Absent: tenderness, meningismus, lymphadenopathy Respiratory exam: Present: normal lung sounds bilaterally. Absent: respiratory distress, wheezes, rales, rhonchi, stridor Cardiovascular Exam: Present: regular rate, normal rhythm, normal heart sounds. Absent: systolic murmur, diastolic murmur, rubs, gallop, clicks Extremities exam: Present: other (Shortening of the left leg., Neurovascular intact there is tenderness diffusely over the left hip and pain with any range of motion) <Shai Garcia - Last Filed: 11/19/20 17:17> Course Vital Signs 11/19/20 16:00 Temperature 97.5 F L Pulse Rate 92 Respiratory 18 Rate Blood Pressure 133/79 O2 Sat by Pulse 98 Oximetry Procedures - [place] Protocol (Time Out) Procedure Performed:: Roy Nurse: Elvin Keen Respiratory Therapist: Eber Lester Patient Identification (2 identifiers required): Chart, Verbal, Name Patient/Legal Corporate Development Associate has Confirmed: Identity, Site, Procedure, Consent Site Marked: Not Applicable - Orthopedic Joint Reduction Joint #1 Consent Obtained: written consent Side: left Analgesia: procedural sedation Technique Used: traction/counter-traction, direct manipulation Post-Reduction Neuro Exam: intact Post-Reduction Vascular Exam: intact Post Reduction X-Ray Obtained: Yes Post Reduction X-Ray Results: reduced Splint Applied: Yes Patient Tolerated Procedure: well, no complications <Shai Garcia - Last Filed: 11/19/20 17:17> - Procedural Sedation Procedural Sedation Start Time: 17:01 Procedural Sedation Stop Time: 17:21 Indications: fracture/dislocation reduction Mallampati Airway Score: 2 Preparation: clinical research monitor applied, pulse oximeter, supplemental O2 applied IV Propofol Dose (mgs): 120 Patient Tolerated Procedure: well <Bravo Roy - Last Filed: 11/19/20 17:20> Medical Decision Making <Shai Garcia - Last Filed: 11/19/20 17:17> - Medical Decision Making 72-year-old female presented for left hip it's location this was reduced with conscious sedation with Dr. Roy. Patient tolerated well no complications. Case discussed with Dr. Heredia who recommended patient to use her walker, follow- up with Dr. Be on Tuesday in office and return for any worsening change in symptoms. (Shai Garcia) Disposition Is patient prescribed a controlled substance at d/c from ED?: No Time of Disposition: 17:18 <Shai Garcia - Last Filed: 11/19/20 17:17> <Bravo Roy - Last Filed: 11/19/20 17:20> Clinical Impression: Hip dislocation, left Disposition: HOME SELF-CARE Condition: Stable Instructions (If sedation given, give patient instructions): Moderate Sedation (ED), Hip Dislocation (ED) Additional Instructions: Contact orthopedics Dr. Be and follow-up in office on Tuesday as directed. Please return to the Emergency Department if symptoms worsen or any other concerns. Referrals: Galdino Huber MD [Primary Care Provider] - 1-2 days Jose Be DO [Doctor of Osteopathic Medicine] - 1-2 days
--- NOTE | 2020-11-19 17:24 | XR ---
RESULT: HISTORY: verify placement. Postreduction. TECHNIQUE: AP view of the left hip. COMPARISON: Earlier same day. FINDINGS: There is interval reduction of left prosthetic hip with anatomic alignment achieved. No acute fractur e or dislocation. IMPRESSION: As above.
[2020-11-19 18:36] VITALS: BP 135/84; PULSE 90
== END 2020-11-19 18:35 | disposition home or self-care (01) ==
LOC: EC 15:58
DX: T84.021A Dislocation of internal left hip prosthesis, initial encounter (principal); K21.9 Gastro-esophageal reflux disease without esophagitis; I10 Essential (primary) hypertension; Z79.899 Other long term (current) drug therapy; Z88.2 Allergy status to sulfonamides; Z88.5 Allergy status to narcotic agent; Z91.040 Latex allergy status; Z96.641 Presence of right artificial hip joint
CPT/HCPCS: 73501; 99283; 99151; 27265; 96374; 96361; J2270; J2704

== ENCOUNTER → 2020-12-01 | Outpatient (CLI) | payer MEDICARE | END | disposition home or self-care (01) | LOC: LABPAT 13:39 | PROVIDERS: ATTEND Orthopaedic Surgery | DX: Z01.812 Encounter for preprocedural laboratory examination (principal); T84.021D Dislocation of internal left hip prosthesis, subsequent encounter | CPT/HCPCS: 86850; 86900; 86901; 87070 ==

== ENCOUNTER 2020-12-08 09:01 | Inpatient (IN) | payer MEDICARE ==
--- NOTE | 2020-12-07 14:16 | HP ---
HISTORY AND PHYSICAL REASON FOR ADMISSION: Surgery 12/08/2020 HISTORY OF PRESENT ILLNESS: Stephanie Arnold is a 80-year-old patient seen with persistent unstable left total hip arthroplasty with history of previous dislocations. We discussed options for treatment. She elected to proceed with revision of her total hip arthroplasty. Consent was obtained. Medical clearance was provided by Dr. Lawrence Huber. PAST MEDICAL HISTORY: Hypertension, gastroesophageal reflux disease. PAST SURGICAL HISTORY: Appendectomy, cataract surgery, cholecystectomy, hysterectomy, total hip arthroplasty. MEDICATIONS: Felodipine, Prilosec and Zyrtec and vitamins. ALLERGIES: SULFA. SOCIAL HISTORY: She denies tobacco use. PHYSICAL EXAMINATION: Evaluation of the left hip: Previous incision appears well healed. She has limited range of motion with some discomfort with instability, apprehension. Homans and Bj are negative. Distal neurovascular exam is intact. RADIOGRAPHS: Of the left hip revealed a stable appearing total hip arthroplasty. IMPRESSION: 1. Painful/unstable left total hip arthroplasty. 2. History of previous left hip dislocation x2. 3. Hypertension. PLAN: Revision left total hip arthroplasty. Surgery scheduled for 12/08/2020. MMODL / IJN: [id number] /
[~2020-12-08 09:01] MED LIST changes: -ACETAMINOPHEN TAB 500 MG TAB PO ONE; +ACETAMINOPHEN TAB 500 MG TAB PO PRN; -MELOXICAM 7.5 MG TAB PO ONE; +MELOXICAM 7.5 MG TAB PO PRN; +MIDAZOLAM 2 MG/2 ML VIAL IV PRN; -TRANEXAMIC ACID 1,000 MG in SODIUM CHLORIDE 0.9% 100 ML IVPB ONE; +TRANEXAMIC ACID 1,000 MG in SODIUM CHLORIDE 0.9% 100 ML IVPB PRN; +fentaNYL (PF) 50 MCG/ML 2 ML AMP IV PRN
[2020-12-08] MEDS: LACTATED RINGERS 1,000 ML IV SCH (13:43)
[2020-12-08] MEDS ORDERED: LIDOCAINE 1% (10MG/ML) FOR IV START INTRADERMA ONE (13:43)
[2020-12-08] MEDS: DEXAMETHASONE SOD PHOSPHATE 4 MG/ML 1 ML VIAL IV ONE ×2 (13:49→21:06)
[2020-12-08] MEDS: ONDANSETRON 4 MG/2 ML VIAL IVP ONE ×2 (13:50→21:07)
[2020-12-08] MEDS ORDERED: TRANEXAMIC ACID 1,000 MG/10 ML VIAL ONE (15:18)
[2020-12-08] MEDS ORDERED: diphenhydrAMINE 50 MG/ML 1 ML VIAL ONE (15:18)
[2020-12-08] MEDS ORDERED: PROPOFOL 10 MG/ML 20 ML VIAL IV ONE (15:18)
[2020-12-08] MEDS ORDERED: fentaNYL (PF) 50 MCG/ML 2 ML AMP ONE (15:18)
[2020-12-08] MEDS ORDERED: MIDAZOLAM 2 MG/2 ML VIAL ONE (15:18)
[2020-12-08] MEDS ORDERED: SODIUM CHLORIDE 0.9% 100 ML BAG ONE (15:18)
[2020-12-08] MEDS ORDERED: PHENYLEPHRINE-0.9% NACL SYG 1,000 MCG/10 ML SYRINGE ONE (15:18)
[2020-12-08] MEDS ORDERED: ceFAZolin 1,000 MG in SODIUM CHLORIDE 0.9% 1,000 ML IRRIGATION ONE (15:57)
[2020-12-08] MEDS: ROPIVACAINE/EPI/CLONIDINE/KET 50 ML SYRINGE MISCELLANE PRN ×2 (15:57→16:37)
[2020-12-08] MEDS ORDERED: NALOXONE 0.4 MG/ML 1 ML VIAL IV PRN (17:10)
[2020-12-08] MEDS ORDERED: MORPHINE SULFATE 2 MG/ML SYRINGE IV PRN ×3 (17:10)
[2020-12-08] MEDS ORDERED: hydrOXYzine pamoate 25 MG CAP PO PRN (17:10)
--- NOTE | 2020-12-08 17:10 | P.OP ---
Date of Procedure: 12/08/20 Preoperative Diagnosis: Unstable/painful left total hip arthroplasty Postoperative Diagnosis: Same Procedure(s) Performed: Revision left total hip arthroplasty revising the acetabular component and femoral head Implants: 1. Depuy BI-MENTUM PE liner 28/47 2. Depuy pinnacle hip solutions dual mobility liner 54/47 3. Biolox delta revision ceramic femoral head +8.5 28 mm 09/08 taper Anesthesia: local, spinal Surgeon: Jose Be Proof Machine Operator #1: Umberto Gomez Estimated Blood Loss (ml): 20 Pathology: none sent Condition: stable Disposition: PACU Indications for Procedure: 80-year-old patient seen with left hip instability with previous history of total hip arthroplasty and dislocations. I discussed revision. Patient was agreeable and consent was obtained. Operative Findings: See description of procedure Description of Procedure: Patient was taken to the operative suite. The patient underwent a spinal anesthetic by the department of anesthesia. The patient was transferred to the [place] table. She did receive preoperative IV antibiotics. The lower extremities were placed in standard traction spars. The left hip was now prepped and draped in the normal sterile orthopedic fashion. I now made an incision along the previous cicatrix sharply through skin. I dissected down to the fascia. I incised the fascia. Retractors were now positioned in the prosthetic hip was exposed. There was mild of normal-appearing synovial fluid. There was no evidence for any abnormal tissue or infective process. I placed a bone hook around the prosthesis was easily able to dislocate. It did seem unstable. The femoral head was removed. I used a drill to be controlling the plastic liner and then used a screw to pop out the polyethylene liner. I now checked the acetabular component was well seated and stable. The femur was well seated and stable. Again there was no abnormal looking tissue. I now irrigated the wound out copiously with pulse lavage mechanical irrigation. I placed a trial BI-MENTUM PE acetabular liner the acetabulum. I now placed a trial Biolox revision ceramic femoral head 20 mm +8.5 as well as a hip solutions dual mobility liner 54/47. The hip was reduced. I checked the stability with range of motion and it was very stable. There was very stable to lateral distraction with a bone hook. C-arm brought into the operative field demonstrating adequate positioning of the components. Leg lengths appeared reasonable. C-arm was pulled back. I now dislocated the hip. I removed all the trial components. I irrigated the wound out copiously with pulse lavage mechanical irrigation. I used my aqua mantis for hemostasis. We had good hemostasis. I now placed a BI- MENTUM PE 28/47 liner into the [place] acetabular component. I tapped it down into was well seated. I checked and made sure was well seated. It was well seated and stable. I now placed a Biolox revision ceramic femoral head 28 mm +8.5 into the pedicle hip solutions dual mobility liner 54/47. We snapped that into position with the appropriate instrument patient. I made sure was well seated and stable. I now placed around to our femoral component tapped that down until I made sure it was stable. I now reduce the hip. I again stability with range of motion was very stable. C-arm brought in noting adequate alignment of the components. C-arm was pulled back. The wound was irrigated copiously with pulse lavage mechanical irrigation. The deep and superficial soft tissues were infiltrated with local analgesic. I repaired the fascia with #1 Vicryl. The subcu soft tissues were repaired with 2-0 Vicryl. The skin is proximal skin jean paul. Sterile dressings were applied. The patient was awakened, transferred to recovery stable condition. Ishan PATIÑO assisted with this procedure.
[2020-12-08] MEDS ORDERED: LACTATED RINGERS 1,000 ML IV ONE (17:11)
[2020-12-08] MEDS ORDERED: SENNOSIDES-DOCUSATE SODIUM 1 EACH TAB PO SCH (21:00)
[2020-12-08 21:38] VITALS: RESP 18
[2020-12-08] MEDS ORDERED: ACETAMINOPHEN TAB 500 MG TAB PO PRN (22:41)
[2020-12-09] MEDS: SODIUM CHLORIDE 0.9% 1,000 ML IV SCH ×2 (02:50→12:05)
[2020-12-09] MEDS: LACTATED RINGERS 1,000 ML IV SCH (03:53)
[2020-12-09] MEDS: traMADol 50 MG TAB PO PRN ×2 (05:44→14:13)
[2020-12-09] MEDS ORDERED: PANTOPRAZOLE 40 MG TABLET PO SCH (07:30)
[2020-12-09 07:48] VITALS: BP 119/75; PULSE 66; TEMP 97.8
[2020-12-09] MEDS ORDERED: LORATADINE 10 MG TAB PO SCH (09:00)
[2020-12-09] MEDS ORDERED: CHOLECALCIFEROL 25 MCG (1000 IU) TABLET PO SCH (09:00)
[2020-12-09] MEDS ORDERED: amLODIPine 10 MG TAB PO SCH (09:00)
[2020-12-09] MEDS ORDERED: ENOXAPARIN 40 MG/0.4 ML SYRINGE SQ SCH (09:00)
[2020-12-09 09:09] LABS: Basophils # (A) 0.01 X 10*3/uL (0.00-0.10); Basophils % (A) 0.1 %; Eosinophils # (A) 0 X 10*3/uL (0.04-0.35); Eosinophils % (A) 0 %; HGB 12.2 g/dL (12.0-15.0); MCV 93.9 fL (80.0-97.0); Mean Platelet Volume 10.4 fL (9.5-12.2); Monocytes # (A) 0.54 X 10*3/uL (0.20-1.00); Neutrophils # (A) 7.48 X 10*3/uL (1.80-7.70); Neutrophils % (A) 83.5 %; Platelet Count 260 X 10*3/uL (140-440); RBC 3.94 X 10*6/uL (4.10-5.20); RDW 13.1 % (11.5-14.5); WBC 8.97 X 10*3/uL (4.50-10.00)
--- NOTE | 2020-12-09 10:31 | XR ---
Fluoroscopy INDICATION: Pain FINDINGS: Fluoroscopy time: 8 seconds. Images obtained: 1. IMPRESSIONS: 1. Documentation of fluoroscopy.
--- NOTE | 2020-12-09 10:31 | FL ---
Fluoroscopy INDICATION: Pain FINDINGS: Fluoroscopy time: 8 seconds. Images obtained: 0. IMPRESSIONS: 1. Documentation of fluoroscopy.
--- NOTE | 2020-12-09 11:33 | P.CONS ---
History of Present Illness - Reason for Consult Consult date: 12/09/20 Medical management - History of Present Illness HISTORY OF PRESENT ILLNESS This is a 80-year-old female patient of Dr. Galdino Huber with past medical history of hypertension, seasonal ALLERGIES, gastroesophageal reflux disease, diverticulitis. Patient gives history that she had her original left total hip arthroplasty done in July 2019. Since that time she has had 2 dislocations and has returned to the hospital for revision of the left total knee arthroplasty done by Dr. Mary Healy yesterday. Patient has had no postop complications. She denies having any chest pain or shortness of breath. No lightheadedness or dizziness. She states she has worked with physical therapy and walked in the hallway and has done well and anticipates discharge home today. REVIEW OF SYSTEMS Constitutional: No fever, no chills, no night sweats. No weight change. No weakness, fatigue or lethargy. No daytime sleepiness. EENT: No headache. No blurred vision or double vision, no loss of vision. No loss of Hearing, no ringing in the ears, no dizziness. No nasal drainage or congestion. No epistaxis. No sore throat. Lungs: No shortness of breath, cough, no sputum production. No wheezing. Cardiovascular: No chest pain, no lower extremity edema. No palpitations. No paroxysmal nocturnal dyspnea. No orthopnea. No lightheadedness or dizziness. No syncopal episodes. Abdominal: No abdominal pain. No nausea, vomiting. No diarrhea. No constipation. No bloody or tarry stools.. No loss of appetite. Genitourinary: No dysuria, increased frequency, urgency. No urinary retention. Musculoskeletal: No myalgias. No muscle weakness, no gait dysfunction, no frequent falls. No back pain. No neck pain. Integumentary: No wounds, no lesions. No rash or pruritus. No unusual bruising. No change in hair or nails. Neurologic: No aphasia. No facial droop. No change in mentation. No head injury. No headache. No paralysis. No paresthesia. Psychiatric: No depression. No anxiety. No mood swings. Endocrine: No abnormal blood sugars. No weight change. SOCIAL HISTORY Patient is a lifelong nonsmoker, no illicit drug use, marijuana use, alcohol use. Patient lives at home alone. She is and is in an extended care facility. 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 FAMILY HISTORY Mother at age 50 from breast cancer. Father at age 87 from prostate cancer. Patient has one sister and she does not know her medical history is there is no contact between them. She has 2 children with no major medical problems. PHYSICAL EXAMINATION Gen: This is 80-year-old female. Patient is resting in a chair and a ppears to be comfortable and in no acute distress. HEENT: Head is atraumatic, normocephalic. Pupils equal, round. Sclerae is anicteric. NECK: Supple. No JVD. No lymphadenopathy. No thyromegaly. LUNGS: Clear to auscultation. No wheezes or rhonchi. No intercostal retractions. HEART: Regular rate and rhythm. No murmur. ABDOMEN: Soft. Bowel sounds are present. No masses. No tenderness. EXTREMITIES: No pedal edema. No calf tenderness. Dorsalis pedis palpable bilaterally. Small dressing in place to the left hip with no breakthrough bleeding or drainage. NEUROLOGICAL: Patient is awake, alert and oriented x3. Cranial nerves 2 through 12 are grossly intact. ASSESSMENT AND PLAN 1. Osteoarthritis status post revision of left total knee arthroplasty. Continue PT and OT per orthopedics, continue current pain management, patient is on Lovenox for DVT prophylaxis. 2. Hypertension. Continue felodipine 10 mg daily. 3. Gastroesophageal reflux disease. Continue omeprazole 20 mg daily. 4. Seasonal ALLERGIES. Continue Zyrtec as needed. 5. History of diverticulitis, no symptoms at this time. 6. DVT prophylaxis per orthopedics. DISCHARGE PLAN Home with homecare today. Impression and plan of care have been directed as dictated by the signing physician. Kathi Monahan nurse practitioner acting as scribe for signing physician. Past Medical History Past Medical History: GERD/Reflux, Hypertension, Osteoarthritis (OA), Pneumonia Additional Past Medical History / Comment(s): HX: MIGRAINES (HAS NOT HAD IN YEARS. 3 bulging disc History of Any Multi-Drug Resistant Organisms: None Reported Past Surgical History: Appendectomy, Breast Surgery, Cholecystectomy, Hernia Repair, Hysterectomy, Joint Replacement, Orthopedic Surgery Additional Past Surgical History / Comment(s): LEFT HIP REPLACEMENT, 08/06/19. LEFT HIP HAS BEEN DISLOCATEING. CATARACT REMOVAL OF RIGHT EYE. Ovarian cyst removed. Rt hip replacement. Carpal tunnel-rt. Cyst removed rt breast, left hip anterior approach arthroplasty Past Anesthesia/Blood Transfusion Reactions: Motion Sickness, Postoperative Nausea & Vomiting (PONV) Additional Past Anesthesia/Blood Transfusion Reaction / Comm: lethargy Past Psychological History: No Psychological Hx Reported Smoking Status: Never smoker Past Alcohol Use History: None Reported Additional Past Alcohol Use History / Comment(s): Patient is a lifelong nonsmoker, no marijuana or illicit drug use, no alcohol use. Past Drug Use History: None Reported - Past Family History Sister(s) History Unknown: Yes Additional Family Medical History / Comment(s): Patient has one sister the patient has no contact with her. No brothers. Patient has one son with osteoarthritis and hip replacement, 1 daughter with no major medical problems. Father Family Medical History: Cancer Additional Family Medical History / Comment(s): Father at age 80 from prostate cancer. Mother Family Medical History: Cancer Additional Family Medical History / Comment(s): Mother at age 50 from breast cancer. Medications and Allergies Home Medications Medication Instructions Recorded Confirmed Type Cetirizine HCl [Zyrtec] 10 mg PO QAM 07/08/15 12/08/20 History Cholecalciferol [Vitamin D3 (25 1,000 unit PO DAILY 07/08/15 12/08/20 History Mcg = 1000 Iu)] Felodipine [Felodipine ER] 10 mg PO QAM 07/08/15 12/08/20 History Omeprazole [PriLOSEC] 20 mg PO AC-BRKFST 07/08/15 12/08/20 History Acetaminophen [Tylenol] 1,000 mg PO Q6H PRN 12/02/20 12/08/20 History Allergies Allergy/AdvReac Type Severity Reaction Status Date / Time adhesive tape Allergy Rash/Hives Verified 12/08/20 13:21 hydromorphone Allergy Anaphylaxis Verified 12/08/20 13:21 Sulfa (Sulfonamide Allergy Unknown Verified 12/08/20 13:21 Antibiotics) adhesive AdvReac Rash/Hives Verified 12/08/20 13:21 Physical Exam Vitals: Vital Signs Temp Pulse Pulse Resp BP BP Pulse Ox 12/09/20 02:00 98.5 F 69 18 132/77 92 L 12/08/20 21:37 97.6 F 69 18 136/70 96 12/08/20 19:30 77 16 121/56 96 12/08/20 19:00 69 16 123/66 97 12/08/20 18:45 73 16 121/58 98 12/08/20 18:23 72 16 119/56 97 12/08/20 18:14 83 16 108/56 92 L 12/08/20 17:45 82 14 111/71 92 L 12/08/20 17:30 67 14 100/58 97 12/08/20 17:26 98.1 F 74 16 96/50 96 12/08/20 13:33 97.7 F 83 18 139/71 93 L Intake and Output 12/08/20 12/09/20 12/09/20 22:59 06:59 14:59 Intake Total 751 Output Total 20 Balance 731 Intake: IV 751 Output: Estimated Blood Loss 20 Other: Voiding Method Toilet # Voids 2 Weight 81.5 kg Results CBC & Chem 7: 12/09/20 05:20
--- NOTE | 2020-12-09 12:53 | P.PN ---
Subjective Progress Note Date: 12/09/20 Principal diagnosis: Status post revision left direct anterior total hip arthroplasty, acetabular and femoral head component Patient was examined today at bedside, she is resting comfortably in her hospital chair. Patient has done very well with physical therapy. Her pain is well-controlled. She is having no headaches, lightheadedness, chest pain, shortness of breath, fever or chills. Objective - Vital Signs Vital signs: Vital Signs Temp 97.8 F 12/09/20 07:46 Pulse 66 12/09/20 07:46 Resp 18 12/09/20 07:46 BP 119/75 12/09/20 07:46 Pulse Ox 92 L 12/09/20 07:46 Intake & Output 12/08/20 12/09/20 12/09/20 18:59 06:59 18:59 Intake Total 1051 Output Total 20 Balance 1031 Weight 81.5 kg Intake: IV 1051 Output: Estimated Blood Loss 20 Other: Voiding Method Toilet # Voids 2 - Exam Left lower extremity: Incision is clean, dry, and intact. The jean paul are in good condition. There is minimal soft tissue swelling and ecchymosis surrounding the medial and lateral aspects of the incision. Calf is soft, no tenderness with palpation. Plantar flexion, dorsiflexion, EHL, FHL are intact. Sensory exam to light touch throughout the extremity is intact, dorsal pedis pulses 2+. - Labs CBC & Chem 7: 12/09/20 05:20 Labs: Abnormal Lab Results - Last 24 Hours (Table) 12/09/20 Range/Units 05:20 RBC 3.94 L (4.10-5.20) X 10*6/uL Hct 37.0 L (37.2-46.3) % Eosinophils # 0 L (0.04-0.35) X 10*3/uL Assessment and Plan Assessment: Postoperative day 1 status post revision left total hip arthroplasty direct anterior approach, acetabular and femoral components Plan: Pain control, tramadol 50 mg for home as needed DVT prophylaxis, aspirin 81 mg twice a day for 2 weeks Wound care instructions were discussed with the patient Home therapy after discharge Medical recommendations Planning for discharge home today Time with Patient: Less than 30
== END 2020-12-09 14:21 | disposition home health service (06) | DRG 468 ==
LOC: 2ORMAIN 12:48 → 4SSUR 20:05
PROVIDERS: ADMIT Orthopaedic Surgery; ATTEND Orthopaedic Surgery
PROC: 0SPB0JZ Removal of Synthetic Substitute from Left Hip Joint, Open Approach (ICD-10-PCS; principal; 2020-12-08 15:05)
PROC: 0SRB03Z Replacement of Left Hip Joint with Ceramic Synthetic Substitute, Open Approach (ICD-10-PCS; principal; 2020-12-08 15:05)
DX: T84.021A Dislocation of internal left hip prosthesis, initial encounter (principal); Y83.9 Surgical procedure, unspecified as the cause of abnormal reaction of the patient, or of later complication, without mention of misadventure at the time of the procedure; Y79.2 Prosthetic and other implants, materials and accessory orthopedic devices associated with adverse incidents; I10 Essential (primary) hypertension; J30.2 Other seasonal allergic rhinitis; K21.9 Gastro-esophageal reflux disease without esophagitis; Z79.899 Other long term (current) drug therapy; Z80.3 Family history of malignant neoplasm of breast; Z90.710 Acquired absence of both cervix and uterus; Z96.641 Presence of right artificial hip joint; Z90.49 Acquired absence of other specified parts of digestive tract; Z98.49 Cataract extraction status, unspecified eye
CPT/HCPCS: 73501; 85025

== ENCOUNTER 2023-04-06 08:05 | Day surgery (SDC) | payer MEDICARE ==
[~2023-04-06 08:05] MED LIST changes: -ACETAMINOPHEN TAB 500 MG TAB PO PRN; +DEXAMETHASONE SOD PHOSPHATE 4 MG/ML 1 ML VIAL IV ONE; +LACTATED RINGERS 1,000 ML IV SCH; +LIDOCAINE 1% (10MG/ML) FOR IV START INTRADERMA PRN; -MELOXICAM 7.5 MG TAB PO PRN; -MIDAZOLAM 2 MG/2 ML VIAL IV PRN; +MOXIFLOXACIN HCL 0.5% DROPS 3 ML BTL OP PRN; +ONDANSETRON 4 MG/2 ML VIAL IVP ONE; +TETRACAINE 0.5% OPHTH (PF) DROPS 4 ML BTL OP PRN; +TIMOLOL 0.5% OPHTH DROPS 5 ML BTL OP PRN; -TRANEXAMIC ACID 1,000 MG in SODIUM CHLORIDE 0.9% 100 ML IVPB PRN; -fentaNYL (PF) 50 MCG/ML 2 ML AMP IV PRN
[2023-04-06 08:36] VITALS: RESP 16; TEMP 97.4
[2023-04-06] MEDS: PHENYLEPHRINE 2.5% OPHTH DRP 2ML OP PRN ×3 (09:04→09:17)
[2023-04-06] MEDS: CYCLOPENTOLATE 1% OPHTH SOLN 2 ML BTL OP PRN ×3 (09:07→09:20)
[2023-04-06] MEDS ORDERED: MIDAZOLAM 2 MG/2 ML VIAL ONE (09:46)
[2023-04-06] MEDS ORDERED: EPINEPHrine (PF) 0.3 ML in BALANCED SALT IRRIG SOLN COMB2 500 ML IRRIGATION ONE (09:52)
[2023-04-06] MEDS ORDERED: HYALURONATE SODIUM INTRAOCULAR 1 EACH SYRINGE (12MG/ML) INTRAOCULA ONE (09:53)
[2023-04-06] MEDS ORDERED: BALANCED SALT IRRIG SOLN COMB2 15 ML IRRIG.SOLN IRRIGATION ONE (09:53)
[2023-04-06] MEDS ORDERED: LIDOCAINE 1% (PF) 10MG/ML VIAL MISCELLANE ONE (09:54)
--- NOTE | 2023-04-06 10:18 | P.OP ---
Date of Procedure: 04/06/23 Preoperative Diagnosis: NS & CS & PSC Postoperative Diagnosis: same Procedure(s) Performed: PIOL, OS Implants: [id number] 15.00 Anesthesia: MAC Surgeon: Too Wolff Pathology: none sent Condition: stable Disposition: same day Indications for Procedure: blurry vision Operative Findings: no complications
[2023-04-06 10:55] VITALS: BP 116/65; PULSE 73
--- NOTE | 2023-04-07 02:38 | OP ---
OPERATIVE REPORT DATE OF SERVICE : 04/06/2023 PROCEDURES PERFORMED: Phacoemulsification of cataract and intraocular lens implant of the left eye. PREOPERATIVE DIAGNOSES: Nuclear sclerosis, cortical sclerosis, posterior subcapsular cataract. POSTOPERATIVE DIAGNOSES: Nuclear sclerosis, cortical sclerosis, posterior subcapsular cataract. ANESTHESIA: Topical. ESTIMATED BLOOD LOSS: None. SPECIMEN TAKEN: None. NARRATIVE: After obtaining the appropriate consent, the patient was brought to the operating room, there she was placed under cardiac monitoring and prepped and draped in the usual sterile manner. She was approached from her left temporal side. Using previously acquired corneal topography information, the axis of 83 degrees was identified and marked with [email or web address] axis marker at the 5 o'clock position. An MVR blade was used to create a paracentesis port. Through this opening, 1% Xylocaine MPF 50:50 mix with balanced salt solution was injected into the anterior chamber. This was followed by stabilization of the anterior chamber with Amvisc. At the 3 o'clock position, a 2.5 mm keratome was used to create a self-sealing corneal flap incision. Through this opening, a cystotome was introduced to begin a continuous tear capsulorrhexis which was then completed using the Utrata forceps. Hydrodissection and hydrodelineation of the lens were accomplished with balanced salt solution. Phacoemulsification lens utilizing phaco chop was accomplished in 13.07 seconds at 15% power. Additional Xylocaine MPF was instilled into the anterior chamber. This was followed by removal of the remaining cortical material under irrigation and aspiration as well as careful polishing of the posterior capsule in capsule vacuum mode. Additional Amvisc was then used to stabilize the capsular bag and a [employer] MX [id number] diopter posterior chamber intraocular lens was inserted into the capsular bag without difficulty. The remaining viscoelastic was removed from in and around the intraocular lens and the lens was rotated to the 83 degree taylor previously placed on the patient's cornea. The lens was tamponaded into place and the eye was brought to normal intraocular pressure through the paracentesis port with balanced salt solution. Wounds were confirmed watertight followed by Tisseel to ensure watertight integrity in the early phase of postoperative care. She then received 2 drops of 0.5% timolol followed by 2 drops of 0.5% moxifloxacin. She was then lightly patched and shielded in the usual manner. The patient was then taken to the outpatient recovery in good condition. There were no complications during the course of this operation. ISHAN / JÚNIORN: [id number] /
== END 2023-04-06 10:56 | disposition home or self-care (01) ==
LOC: OR 08:05
PROVIDERS: ATTEND Ophthalmology
DX: H25.12 Age-related nuclear cataract, left eye (principal); H25.012 Cortical age-related cataract, left eye; H25.042 Posterior subcapsular polar age-related cataract, left eye; I10 Essential (primary) hypertension; K21.9 Gastro-esophageal reflux disease without esophagitis; Z88.2 Allergy status to sulfonamides; Z88.5 Allergy status to narcotic agent; Z91.048 Other nonmedicinal substance allergy status; Z98.890 Other specified postprocedural states; Z79.52 Long term (current) use of systemic steroids; Z79.2 Long term (current) use of antibiotics; Z79.899 Other long term (current) drug therapy
CPT/HCPCS: 66984; V2787; C1780; J2250; J0171; J2001

== ENCOUNTER → 2023-05-16 | Outpatient (CLI) | payer MEDICARE ==
--- NOTE | 2023-05-16 20:34 | US ---
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 Bladder: wnl Bilateral Jets seen: Only left jet visualized IMPRESSION: 1. There is some mild prominence of the inferior pole renal collecting system. Peripelvic cysts could be considered within the differential. Finding is improved from comparison.
== END | disposition home or self-care (01) ==
LOC: RADUSWWP 14:43
PROVIDERS: ATTEND Urology
DX: N13.30 Unspecified hydronephrosis (principal); N28.1 Cyst of kidney, acquired
CPT/HCPCS: 76770

== ENCOUNTER 2023-08-30 14:31 | Emergency (ER) | payer MEDICARE ==
--- NOTE | 2023-08-30 16:43 | ED ---
Abdominal Pain HPI - General Source: patient, family Mode of arrival: wheelchair Limitations: no limitations - History of Present Illness MD Complaint: abdominal pain -: month(s) Location: suprapubic Migration to: no migration Severity: severe Quality: aching, burning Consistency: constant Improves With: nothing Worsens With: bowel movement, other (Urination) Associated Symptoms: denies other symptoms <Jaycob Kenny - Last Filed: 08/30/23 20:55> - History of Present Illness MD Complaint: abdominal pain -: month(s) Location: suprapubic Radiation: suprapubic Migration to: suprapubic Severity: moderate Severity scale (1-10): 7 Quality: sharp Improves With: nothing Worsens With: nothing Associated Symptoms: nausea <Bravo Payan - Last Filed: 09/01/23 04:52> - General Chief Complaint: Abdominal Pain Stated Complaint: abd/pelvic pain Time Seen by Provider: 08/30/23 16:13 - History of Present Illness Initial Comments: This patient is an 83-year-old woman who presents to have evaluation of perineal/suprapubic pain that has been going on probably around 3-4 months, perhaps longer. Patient states that the pain has become constant. It is burning, sometimes sharp. She states that sometimes it feels worse with urination or bowel movement. She has not noted any associated symptoms. No fever or chills. The patient states that she attempted to follow with her previous mechanical system technician but the last time she had seen him was 2018 so she has to register as a new patient. (Jaycob Kenny) 83 female to the emergency department for evaluation of perineal pain and abdominal pain, nonspecific abdominal pain and pelvic pain (Bravo Payan) - Related Data Home Medications Medication Instructions Recorded Confirmed Cetirizine HCl [Zyrtec] 10 mg PO DAILY 07/08/15 08/30/23 Cholecalciferol [Vitamin D3 (25 1,000 unit PO DAILY 07/08/15 08/30/23 Mcg = 1000 Iu)] Felodipine [Plendil] 10 mg PO DAILY 07/08/15 08/30/23 Omeprazole [PriLOSEC] 20 mg PO AC-BRKFST 07/08/15 08/30/23 Cranberry Fruit Extract [Theracran] 650 mg PO DAILY 08/30/23 08/30/23 Multivitamins, Thera [Multivitamin 1 tab PO DAILY 08/30/23 08/30/23 (formulary)] Allergies Allergy/AdvReac Type Severity Reaction Status Date / Time adhesive tape Allergy Rash/Hives Verified 08/30/23 17:45 hydromorphone Allergy Anaphylaxis Verified 08/30/23 17:45 Sulfa (Sulfonamide Allergy Unknown Verified 08/30/23 17:45 Antibiotics) adhesive AdvReac Rash/Hives Verified 08/30/23 17:45 Review of Systems ROS Other: All systems not noted in ROS Statement are negative. Constitutional: Denies: fever, chills, weakness Respiratory: Denies: cough, dyspnea Cardiovascular: Denies: chest pain, palpitations, edema Gastrointestinal: Reports: as per HPI, abdominal pain. Denies: nausea, vomiting, diarrhea, constipation, melena, hematochezia Genitourinary: Denies: dysuria, hematuria Musculoskeletal: Denies: back pain Skin: Denies: rash Neurological: Denies: headache, weakness, numbness <Jaycob Kenny - Last Filed: 08/30/23 20:55> ROS Other: All systems not noted in ROS Statement are negative. <Bravo Payan - Last Filed: 09/01/23 04:52> ROS Statement: Those systems with pertinent positive or pertinent negative responses have been documented in the HPI. Past Medical History Past Medical History: GERD/Reflux, Hypertension, Pneumonia Additional Past Medical History / Comment(s): hx migraines, arthritis, 3 bulging disks History of Any Multi-Drug Resistant Organisms: None Reported Past Surgical History: Appendectomy, Bladder Surgery, Breast Surgery, Cholecystectomy, Hernia Repair, Hysterectomy, Joint Replacement, Orthopedic Surgery Additional Past Surgical History / Comment(s): CATARACT REMOVAL OF RIGHT EYE.Ovarian cyst removed. Rt hip replacement. Carpal tunnel-rt. Cyst removed rt breast, left hip anterior approach arthroplasty, bladder suspension Past Anesthesia/Blood Transfusion Reactions: Motion Sickness, Postoperative Nausea & Vomiting (PONV) Additional Past Anesthesia/Blood Transfusion Reaction / Comment(s): lethargy Past Psychological History: No Psychological Hx Reported Smoking Status: Never smoker Past Alcohol Use History: None Reported Past Drug Use History: None Reported - Past Family History Sister(s) History Unknown: Yes Additional Family Medical History / Comment(s): Patient has one sister the patient has no contact with her. No brothers. Patient has one son with osteoarthritis and hip replacement, 1 daughter with no major medical problems. Father Family Medical History: Cancer Additional Family Medical History / Comment(s): Father at age 80 from prostate cancer. Mother Family Medical History: Cancer Additional Family Medical History / Comment(s): Mother at age 50 from breast cancer. <Jaycob Kenny - Last Filed: 08/30/23 20:55> General Exam Limitations: no limitations General appearance: alert, in no apparent distress Head exam: Present: atraumatic, normocephalic Eye exam: Present: normal appearance. Absent: scleral icterus, conjunctival injection Neck exam: Present: normal inspection Respiratory exam: Present: normal lung sounds bilaterally. Absent: respiratory distress, wheezes, rales, rhonchi, stridor Cardiovascular Exam: Present: regular rate, normal rhythm, normal heart sounds. Absent: systolic murmur, diastolic murmur, rubs, gallop GI/Abdominal exam: Present: soft. Absent: distended, tenderness, guarding, rebound, rigid, mass, pulsatile mass External exam: Present: normal external exam. Absent: erythema, swelling, lesions By manual exam: Present: other (I did perform digital exam and there appears to be stricture just past the introitus. There is tenderness.) Extremities exam: Present: normal inspection, normal capillary refill. Absent: pedal edema, calf tenderness Back exam: Present: normal inspection. Absent: CVA tenderness (R), CVA tenderness (L) Neurological exam: Present: alert Skin exam: Present: warm, dry, intact, normal color. Absent: rash <Jaycob Kenny - Last Filed: 08/30/23 20:55> General appearance: alert, in no apparent distress Head exam: Present: atraumatic, normocephalic, normal inspection Eye exam: Present: normal appearance, PERRL, EOMI. Absent: scleral icterus, conjunctival injection, periorbital swelling ENT exam: Present: normal exam, mucous membranes moist Neck exam: Present: normal inspection. Absent: tenderness, meningismus, lymphadenopathy Respiratory exam: Present: normal lung sounds bilaterally. Absent: respiratory distress, wheezes, rales, rhonchi, stridor Cardiovascular Exam: Present: regular rate, normal rhythm, normal heart sounds. Absent: systolic murmur, diastolic murmur, rubs, gallop, clicks GI/Abdominal exam: Present: soft, normal bowel sounds. Absent: distended, tenderness, guarding, rebound, rigid Extremities exam: Present: normal inspection, full ROM, normal capillary refill. Absent: tenderness, pedal edema, joint swelling, calf tenderness Back exam: Present: normal inspection Neurological exam: Present: alert, oriented X3, CN II-XII intact Psychiatric exam: Present: normal affect, normal mood Skin exam: Present: warm, dry, intact, normal color. Absent: rash <Bravo Payan - Last Filed: 09/01/23 04:52> Course <Bravo Payan - Last Filed: 09/01/23 04:52> Vital Signs 08/30/23 08/30/23 08/30/23 14:54 18:00 19:53 Temperature 98.4 F 98.2 F 98.7 F Pulse Rate 85 56 L Respiratory 16 16 Rate Blood Pressure 118/72 136/76 O2 Sat by Pulse 95 99 Oximetry 08/30/23 22:50 Temperature 98.7 F Pulse Rate 69 Respiratory 18 Rate Blood Pressure 138/70 O2 Sat by Pulse 97 Oximetry - Reevaluation(s) Reevaluation #1: 08/30/23 22:56 medical records reviewed (Bravo Payan) Reevaluation #2: 08/30/23 22:56 Patient's pain is improving (Bravo Payan) Reevaluation #3: 08/31/23 01:23 patient is informed of results and questions answered (Bravo Payan) Reevaluation #4: 08/30/23 22:56 Was pt. sent in by a medical professional or institution (, PA, INDUSTRIAL PHOTOGRAPHER, urgent care, hospital, or longterm...) When possible be specific @ -no Did you speak to anyone other than the patient for history (EMS, parent, family, police, friend...)? What history was obtained from this source @ -no Did you review nursing and triage notes (agree or disagree)? Why? @ -agree Are old charts reviewed (outside hosp., previous admission, EMS record, old EKG, old radiological studies, urgent care reports/EKG's, longterm records)? Report findings @ -yes Differential Diagnosis (chest pain, altered mental status, abdominal pain women, abdominal pain men, vaginal bleeding, weakness, fever, dyspnea, syncope, headache, dizziness, GI bleed, back pain, seizure, CVA, palpatations, mental health, musculoskeletal)? @ -prior EKG interpreted by me (3pts min.). @ -no X-rays interpreted by me (1pt min.). @ -no CT interpreted by me (1pt min.). @ -yes, hiatal hernia but negative for acute disease U/S interpreted by me (1pt. min.). @ -yes no specific positive findings What testing was considered but not performed or refused? (CT, X-rays, U/S, labs)? Why? @ -none What meds were considered but not given or refused? Why? @ -none Did you discuss the management of the patient with other professionals (professionals i.e. , PA, INDUSTRIAL PHOTOGRAPHER, lab, RT, psych nurse, family welfare social work professor, lead fire protection engineer, teacher, tactical debriefer officer, case preparer and liner)? Give summary @ -no Was smoking cessation discussed for >3mins.? @ -no Was critical care preformed (if so, how long)? @ -no Were there social determinants of health that impacted care today? How? (Homelessness, low income, unemployed, alcoholism, drug addiction, transportation, low edu. Level, literacy, decrease access to med. care, alf, rehab)? @ -none Was there de-escalation of care discussed even if they declined (Discuss DNR or withdrawal of care, Hospice)? DNR status @ -no What co-morbidities impacted this encounter? (DM, HTN, Smoking, COPD, CAD, Cancer, CVA, ARF, Chemo, Hep., AIDS, mental health diagnosis, sleep apnea, morbid obesity)? @ -none Was patient admitted / discharged? Hospital course, mention meds given and route, prescriptions, significant lab abnormalities, going to OR and other pertinent info. @ - 83 female who presents to the emergency department today for evaluation of pelvic pain vagina pain. Patient is also found to urinary tract infection will treat with antibiotics. Patient can be discharged home with pelvic pain follow- up with OB with current adequate pain control Discharge Undiagnosed new problem with uncertain prognosis? @ -no Drug Therapy requiring intensive monitoring for toxicity (Heparin, Nitro, Insulin, Cardizem)? @ -no Were any procedures done? @ -no Diagnosis/symptom? @ -Abdominal pain, urinary tract infection, pelvic pain Acute, or Chronic, or Acute on Chronic? @ -Acute Uncomplicated (without systemic symptoms) or Complicated (systemic symptoms)? @ -Complicated Side effects of treatment? @ -no Exacerbation, Progression, or Severe Exacerbation? @ -exacerbation Poses a threat to life or bodily function? How? (Chest pain, [place], [place], pneumonia, PE, COPD, DKA, ARF, appy, cholecystitis, CVA, Diverticulitis, Homicidal, Suici dorian, threat to staff... and all critical care pts) @ -yes with extremes of age (Bravo Payan) Reevaluation #5: 08/30/23 22:57 Differential Abdominal Pain Women: Appendicitis, Cholecystitis, diverticulosis, ischemic bowel, pancreatitis, hepatitis, UTI, gastroenteritis, AAA, incarcerated hernia, bowel obstruction, constipation, inflammatory bowel, hepatitis, peptic ulcer disease, splenic infarction, perforated viscus, vulvitis, ovarian torsion, PID, kidney stone, placenta abruption, this is not meant to be an all-inclusive list (Bravo Payan) Medical Decision Making - Lab Data Result diagrams: 08/30/23 17:32 08/30/23 18:12 <Jaycob Kenny - Last Filed: 08/30/23 20:55> - Lab Data Result diagrams: 08/30/23 17:32 08/30/23 18:12 - Radiology Data Radiology results: report reviewed (US pelvis CT abd pelvis is negatie for acute diseas contributing to patients symptoms), image reviewed <Bravo Payan - Last Filed: 09/01/23 04:52> - Medical Decision Making 83 female who presents to the emergency department today for evaluation of pelvic pain vagina pain. Patient is also found to urinary tract infection will treat with antibiotics. Patient can be discharged home with pelvic pain follow- up with OB with current adequate pain control (Bravo Payan) - Lab Data Lab Results 08/30/23 08/30/23 08/30/23 Range/Units 16:38 17:32 18:12 WBC 6.4 (3.8-10.6) k/uL RBC 4.74 (3.80-5.40) m/uL Hgb 15.2 (11.4-16.0) gm/dL Hct 45.7 (34.0-46.0) % MCV 96.5 (80.0-100.0) fL MCH 32.1 (25.0-35.0) pg MCHC 33.3 (31.0-37.0) g/dL RDW 13.0 (11.5-15.5) % Plt Count 249 (150-450) k/uL MPV 7.7 Neutrophils % 57 % Lymphocytes % 35 % Monocytes % 5 % Eosinophils % 1 % Basophils % 1 % Neutrophils # 3.6 (1.3-7.7) k/uL Lymphocytes # 2.2 (1.0-4.8) k/uL Monocytes # 0.3 (0-1.0) k/uL Eosinophils # 0.1 (0-0.7) k/uL Basophils # 0.0 (0-0.2) k/uL Sodium 141 (137-145) mmol/L Potassium 4.0 (3.5-5.1) mmol/L Chloride 105 (98-107) mmol/L Carbon Dioxide 25 (22-30) mmol/L Anion Gap 11 mmol/L BUN 26 H (7-17) mg/dL Creatinine 0.75 (0.52-1.04) mg/dL Est GFR (CKD-EPI)AfAm 87 (>60 ml/min/1.73 sqM) Est GFR (CKD-EPI)NonAf 75 (>60 ml/min/1.73 sqM) Glucose 96 (74-99) mg/dL Calcium 9.8 (8.4-10.2) mg/dL Total Bilirubin 0.5 (0.2-1.3) mg/dL AST 26 (14-36) U/L ALT 16 (4-34) U/L Alkaline Phosphatase 92 (38-126) U/L C-Reactive Protein 3.4 H (<1.0) mg/dL Total Protein 7.4 (6.3-8.2) g/dL Albumin 4.3 (3.5-5.0) g/dL Urine Color Yellow Urine Appearance Cloudy H (Clear) Urine pH 5.5 (5.0-8.0) Ur Specific [place] 1.025 (1.001-1.035) Urine Protein 1+ H (Negative) Urine Glucose (UA) Negative (Negative) Urine Ketones Trace (Negative) Urine Blood Trace (Negative) Urine Nitrite Negative (Negative) Urine Bilirubin Negative (Negative) Urine Urobilinogen <2.0 (<2.0) mg/dL Ur Leukocyte Esterase Large (Negative) Urine RBC 8 H (0-5) /hpf Urine WBC >182 H (0-5) /hpf Ur Squamous Epith Cells 1 (0-4) /hpf Urine Bacteria Rare H (None) /hpf Urine Mucus Few H (None) /hpf Disposition <Jaycob Kenny - Last Filed: 08/30/23 20:55> Is patient prescribed a controlled substance at d/c from ED?: No Time of Disposition: 01:20 <Bravo Payan - Last Filed: 09/01/23 04:52> Clinical Impression: Fall, Abdominal pain, Pelvic pain, UTI (urinary tract infection) Disposition: HOME SELF-CARE Condition: Good Instructions (If sedation given, give patient instructions): Urinary Tract Infection in Women (ED), Abdominal Pain (ED) Referrals: Galdino Huber MD [Primary Care Provider] - 1-2 days Danielle Jacobo DO [Doctor of Osteopathic Medicine] - 1-2 days Emre Ferguson MD [STAFF PHYSICIAN] - 1-2 days
[2023-08-30 17:24] LABS: Bacteria,Urine Rare /hpf; Mucus,Urine Few /hpf; RBC,Urine 8 /hpf (0-5); Squamous Epithelial Cell,Urine 1 /hpf (0-4); WBC,Urine >182 /hpf (0-5)
[2023-08-30 17:52] LABS: Basophils % (A) 1 %; Eosinophils # (A) 0.1 k/uL (0-0.7); Eosinophils % (A) 1 %; HCT 45.7 % (34.0-46.0); HGB 15.2 gm/dL (11.4-16.0); Lymphocytes # (A) 2.2 k/uL (1.0-4.8); Lymphocytes % (A) 35 %; MCH 32.1 pg (25.0-35.0); MCHC 33.3 g/dL (31.0-37.0); MCV 96.5 fL (80.0-100.0); Mean Platelet Volume 7.7; Monocytes # (A) 0.3 k/uL (0-1.0); Monocytes % (A) 5 %; Neutrophils # (A) 3.6 k/uL (1.3-7.7); Neutrophils % (A) 57 %; Platelet Count 249 k/uL (150-450); RBC 4.74 m/uL (3.80-5.40); WBC 6.4 k/uL (3.8-10.6)
[2023-08-30 18:00] LABS: Color,Urine Yellow
[2023-08-30 18:01] LABS: Appearance,Urine Cloudy (Clear)
[2023-08-30 18:02] LABS: Bilirubin,Urine Negative (Negative); Blood,Urine Trace (Negative); Glucose,Urine (UA) Negative (Negative); Ketones,Urine Trace (Negative); Leukocyte Esterase,Urine Large (Negative); Nitrite,Urine Negative (Negative); PH, Urine 5.5 (5.0-8.0); Protein,Urine 1+ (Negative); Specific Gravity,Urine 1.025 (1.001-1.035); Urobilinogen,Urine <2.0 mg/dL (<2.0)
[2023-08-30 18:46] LABS: ALT 16 U/L (4-34); AST 26 U/L (14-36); African American GFR (CKD) 87 (>60 ml/min/1.73 sqM); Albumin 4.3 g/dL (3.5-5.0); Alkaline Phosphatase 92 U/L (38-126); Anion Gap 11 mmol/L; Blood Urea Nitrogen 26 mg/dL (7-17); C Reactive Protein 3.4 mg/dL (<1.0); Calcium 9.8 mg/dL (8.4-10.2); Carbon Dioxide 25 mmol/L (22-30); Chloride 105 mmol/L (98-107); Glucose 96 mg/dL (74-99); Non-African American GFR(CKD) 75 (>60 ml/min/1.73 sqM); Sodium 141 mmol/L (137-145); Total Bilirubin 0.5 mg/dL (0.2-1.3); Total Protein 7.4 g/dL (6.3-8.2)
[2023-08-30] MEDS ORDERED: ACETAMINOPHEN TAB 325 MG TAB PO STA (19:57)
--- NOTE | 2023-08-30 20:01 | US ---
EXAMINATION TYPE: US pelvic complete DATE OF EXAM: 08/30/2023 COMPARISON: NONE CLINICAL INDICATION: Female, 83 years old with history of perineal/suprapubic pain. post-menopausal.; Pelvic pain x months and getting worse. Total hysterectomy 20+ years ago. . thought donna aguilera felt a mass during pelvic exam TECHNIQUE: . Transabdominal sonographic images of the pelvis were acquired. Transvaginal sonographi c images were medically necessary to better assess the following anatomy: Vaginal cuff Date of LMP: 20+ years ago EXAM MEASUREMENTS: Uterus: Surgically absent Endometrial Stripe: Surgically absent Right Ovary: Surgically absent Left Ovary: Surgically absent 1. Uterus: Surgically absent 2. Endometrium: Surgically absent 3. Right Ovary: Surgically absent 4. Left Ovary: Surgically absent 5. Bilateral Adnexa: peristalsing bowel seen 6. Posterior cul-de-sac: wnl Complex avascular area seen near vaginal cuff measuring 3.3 x 3.2 x 1.3cm. IMPRESSION: Complex avascular area seen near the vaginal cuff. Finding is indeterminate and could represent organ izing fluid collection versus postoperative seroma versus other. Consider evaluation with cross-secti onal imaging with IV and oral contrast.
[2023-08-30 20:06] VITALS: TEMP 98.7
[2023-08-30] MEDS ORDERED: IOPAMIDOL CONTRAST (ORAL USE) VIAL PO PRN (20:11)
[2023-08-30] MEDS ORDERED: MORPHINE SULFATE 2 MG/ML SYRINGE IVP STA (22:30)
[2023-08-30 23:01] VITALS: BP 138/70; PULSE 69; RESP 18
--- NOTE | 2023-08-31 00:09 | CT ---
EXAM: CT Abdomen and Pelvis With Intravenous Contrast CLINICAL HISTORY: ITS.REASON CT Reason: evaluate vaginal cuff finding TECHNIQUE: Axial computed tomography images of the abdomen and pelvis with intravenous contrast. CTDI is 25.7 mGy and DLP is 1014.9 mGy-cm. This CT exam was performed using one or more of the following dose reduction techniques: automated exposure control, adjustment of the mA and/or kV according to patient size, and/or use of iterative reconstruction technique. COMPARISON: No relevant prior studies available. FINDINGS: Lung bases: Unremarkable. No mass. No consolidation. Mediastinum: Large hiatal hernia which contains a proximal stomach in a retrocardiac position. ABDOMEN: Liver: Hepatic steatosis. Gallbladder and bile ducts: Cholecystectomy. No ductal dilation. Pancreas: Unremarkable. No mass. No ductal dilation. Spleen: Unremarkable. No splenomegaly. Adrenals: Unremarkable. No mass. Kidneys and ureters: Unremarkable. No hydronephrosis or delayed nephrogram. Stomach and bowel: Severe sigmoid diverticulosis, without acute diverticulitis. Evaluation of the sigmoid colon is limited due to extensive streak artifact. No bowel obstruction. No free intraperitoneal air. PELVIS: Appendix: No findings to suggest acute appendicitis. Bladder: Unremarkable. No mass. Reproductive: Unremarkable as visualized. ABDOMEN and PELVIS: Intraperitoneal space: Unremarkable. No free air. No significant fluid collection. Bones/joints: The bladder is obscured by streak artifact from the patient's bilateral hip arthroplasties. Degenerative changes of the spine. No acute fracture. No dislocation. Soft tissues: Unremarkable. Vasculature: Atherosclerotic changes of the aorta. No abdominal aortic aneurysm. Lymph nodes: Unremarkable. No enlarged lymph nodes. IMPRESSION: 1. Large hiatal hernia which contains a proximal stomach in a retrocardiac position. 2. Cholecystectomy. 3. Severe sigmoid diverticulosis, without acute diverticulitis. Evaluation of the sigmoid colon is limited due to extensive streak artifact. No bowel obstruction. No free intraperitoneal air.
[2023-08-31] MEDS ORDERED: SODIUM CHLORIDE 0.9% 1,000 ML IV STA (00:37)
[2023-08-31] MEDS ORDERED: SODIUM CHLORIDE 0.9% 500 ML 500 ML IV STA (00:37)
[2023-08-31] MEDS ORDERED: CEPHALEXIN 500MG STARTER PACK 4 CAP BTL PO STA (01:23)
[2023-08-31] MEDS ORDERED: ACET/COD 300 MG/30 MG STARTER PACK 6 TAB BTL PO STA (01:23)
[2023-08-31] MEDS ORDERED: ONDANSETRON 4 MG ODT STARTER PACK 2 TAB BTL PO STA (01:23)
== END 2023-08-31 01:36 | disposition home or self-care (01) ==
LOC: EC 14:31
DX: R10.2 Pelvic and perineal pain (principal); B96.20 Unspecified Escherichia coli [E. coli] as the cause of diseases classified elsewhere; N39.0 Urinary tract infection, site not specified; K21.9 Gastro-esophageal reflux disease without esophagitis; I10 Essential (primary) hypertension; Z88.5 Allergy status to narcotic agent; Z88.2 Allergy status to sulfonamides; Z88.8 Allergy status to other drugs, medicaments and biological substances; Z79.899 Other long term (current) drug therapy
CPT/HCPCS: 36415; 80053; 85025; 86140; 81001; 87086; 87077; 87186; 76857; 76830; 74177; 99284; 96365; 96375; J0696; J2270; S0119; Q9967

== ENCOUNTER 2024-12-19 10:21 | Day surgery (SDC) | payer MEDICARE ==
[2024-12-17 09:59] VITALS: BMI 25.2
[2024-12-19] MEDS: IV FLUID CONTINUATION 1,000 ML IV ONE (12:21)
[2024-12-19 12:24] VITALS: RESP 18; TEMP 97
[2024-12-19] MEDS: LACTATED RINGERS 1,000 ML IV SCH (12:36)
[2024-12-19] MEDS ORDERED: LIDOCAINE 1% INJ 10MG/ML (20 ML MDV) ONE (13:21)
[2024-12-19] MEDS ORDERED: PROPOFOL 10 MG/ML 20 ML VIAL IV ONE (13:21)
[2024-12-19] MEDS ORDERED: MIDAZOLAM 2 MG/2 ML VIAL ONE (13:21)
[2024-12-19] MEDS ORDERED: fentaNYL (PF) 50 MCG/ML 2 ML AMP ONE (13:21)
[2024-12-19] MEDS: BALANCED SALT IRRIG SOLN COMB2 15 ML IRRIG.SOLN INTRAOCULA ONE (13:23)
[2024-12-19] MEDS: BUPIVACAINE (PF) 0.5% 4.5 ML, HYALURONIDASE, HUMAN RECOMB 150 UNIT, LIDOCAINE 2% (PF) 9... IO PRN (13:34)
[2024-12-19] MEDS: NEOMYCIN-POLYMYXIN-DEXAMETH OINT 3.5 GM TUBE OPHTHALMIC PRN (13:36)
[2024-12-19] MEDS: TETRACAINE 0.5% OPHTH (PF) DROPS 4 ML BTL RIGHT EYE ONE (14:20)
--- NOTE | 2024-12-19 14:55 | P.OP ---
Date of Procedure: 12/19/24 Preoperative Diagnosis: R XT Postoperative Diagnosis: same Procedure(s) Performed: R&R Implants: none Anesthesia: MAC, regional Surgeon: Too Wolff Pathology: none sent Condition: stable Disposition: same day Indications for Procedure: diplopia Operative Findings: no complications
[2024-12-19 15:02] VITALS: BP 138/73; PULSE 75
--- NOTE | 2024-12-24 14:20 | OP ---
OPERATIVE REPORT DATE OF SERVICE : PROCEDURE PERFORMED: Resection of the horizontal rectus muscles to correct exotropia of the right eye. PREOPERATIVE DIAGNOSIS: Exotropia, 25 prism diopters. POSTOPERATIVE DIAGNOSIS: Exotropia, 25 prism diopters. ANESTHESIA: Retrobulbar block. ESTIMATED BLOOD LOSS: Less than 5 mL. SPECIMENS TAKEN: None. NARRATIVE: After obtaining the appropriate consent, the patient was brought into the operating room. There, she was placed under cardiac monitoring and received a retrobulbar block after induction into a propofol twilight sleep. Approximately 10 minutes after the retrobulbar injection, the patient was then prepped and draped in the usual sterile manner. She was approached from the 12 o'clock position and forced duction of the eye was performed without any difficulty and no evidence of any restrictions or difficulty in movement of the globe. In the inferior nasal quadrant, a sharp dissection down to bare sclera was performed with Jayde scissors, and using blunt dissection, elevation of the conjunctiva and Tenon's tissue from the medial aspect of the eye was performed. Strabismus soaks were used to identify the medial rectus muscle and all Tenon's material was cleared over the top as well as beneath the medial rectus muscle. Using a Barraquer caliper, a 5 mm distance was set posterior to the natural insertion of the medial rectus muscle on the globe and was marked with gentian delores. At this position 5-0 Surgidac suture was used to encircle the vascular stalk, down the center of the medial rectus muscle, followed by each half of the suture being woven through the superior and lower half of the muscle edge, blocking off the suture at the edge of the muscle. Each individual suture, both superior and inferior were kept and the medial rectus muscle was then amputated, just anterior to the suture placement. The remaining medial rectus muscle left inserted at the limbus of the eye was also cleanly from the natural insertion point. The medial rectus muscle was then advanced anteriorly to the natural insertion of the medial rectus muscle and tied off using a crossed- swords technique. Hemostasis was maintained with dampened tonsil sponges. All sutures were trimmed and the conjunctiva was then brought back to the inferior nasal quadrant and secured using an 8-0 Vicryl suture. The globe was then rotated medially and in the infratemporal quadrant. The conjunctiva was elevated and Jayde scissors were used to incise the conjunctiva down to bare sclera. Again, both sharp and blunt dissection of the underlying conjunctiva and Tenon's tissue was performed and using the large Green's hook was used to identify the lateral rectus muscle. The conjunctival tissue was stretched over the tip of the Green's hook and all remaining Tenon's material was removed around the muscle belly itself. Blunt dissection removed all adhesions between lateral rectus and the globe and Tenon's tissue. Using a double-armed 5-0 Surgidac suture, once again, the central vascular stalk of the muscle was identified and the suture was passed around, securing the vascular stalk of the muscle near the natural insertion into the globe. Again, the each remaining half of the suture was then woven through its respective muscle body and secured in a locking fashion on the edge of the muscle carefully using the tenotomy scissors. The lateral rectus was then from its natural insertion site on the globe, using a Barraquer caliper set to 6 mm, directly posterior to its original insertion site. The muscle was allowed to recess to the new 6 mm area which was marked with gentian delores. At this point, the free edge of the muscle was then advanced to its new insertion, 6 mm posterior to its natural insertion using a crossed-swords technique. During the placement of 1 of the posterior sutures, there was identified some clear fluid, and at this stage, unfortunately the suture had already been advanced far enough through the scleral tissue that removal was not immediately feasible; however, once the muscle was tied down to its new insertion, there was no further evidence of any vitreal material leaking from this area, and the suture was then trimmed. The conjunctiva which had been moved superiorly was then brought back over the inferior temporal quadrant and secured using 8-0 Vicryl. All sutures were trimmed. The eye appeared to be in a slight esotropic position, and the patient then received a copious amount of Maxitrol ointment between the eyelids. She was then lightly patched and shielded at the end of the case. There were no other difficulties encountered during the procedure. She, otherwise, tolerated the procedure reasonably well and was returned to recovery in good condition. MMODL / IJN: [id number] / [facility]OSPITALMilan
== END 2024-12-19 15:53 | disposition home or self-care (01) ==
LOC: OR 10:21
PROVIDERS: ATTEND Ophthalmology
DX: H50.111 Monocular exotropia, right eye (principal); I10 Essential (primary) hypertension; H53.001 Unspecified amblyopia, right eye; H52.223 Regular astigmatism, bilateral; H52.4 Presbyopia; H52.13 Myopia, bilateral; Z96.1 Presence of intraocular lens
CPT/HCPCS: 67312; J2250; J3470; J2003 ×2; J3010; J2704; J0665